=== PATIENT | female | born 1935 | race Caucasian/White ===

== ENCOUNTER 2017-08-09 16:13 | Emergency (ER) | payer MEDICARE ==
[2017-08-09] MEDS ORDERED: Sucralfate TAB* 1 GM PO ONE (17:59)
[2017-08-09] MEDS ORDERED: Al Hydrox/Mg Hydrox/Simet LIQ* 30 ML UDC PO ONE (17:59)
[2017-08-09] MEDS ORDERED: Pantoprazole IV* 40 MG IV ONE (17:59)
[2017-08-09 18:38] LABS: ABS Basophils 0 10^3/ul (0-0.2); ABS Eosinophils 0.1 10^3/ul (0-0.6); ABS Lymphocytes 1.3 10^3/ul (1.0-4.8); ABS Monocytes 0.7 10^3/ul (0-0.8); ABS Neutrophils 6.5 10^3/ul (1.5-7.7); ABS Nucleated RBC 0 10^3/ul; Eosinophil % 0.7 % (0-6); Hematocrit 36 % (35-47); Lymphocyte % 15.6 % (25-47); Mean Corpuscular HGB Conc 33 g/dl (31-36); Mean Corpuscular Hemoglobin 29 pg (27-31); Mean Corpuscular Volume 87 fL (80-97); Mean Platelet Volume 8 um3 (7.4-10.4); Nucleated Red Blood Cells % 0.1; Platelet Count 276 10^3/ul (150-450); Red Cell Distribution Width 14 % (10.5-15); White Blood Count 8.6 10^3/ul (3.5-10.8)
[2017-08-09 18:54] LABS: INR 1.06 (0.77-1.02)
[2017-08-09 18:55] LABS: EGFR Non-African American 77.5 (>60)
--- NOTE | 2017-08-09 19:06 | RAD ---
HISTORY: Chest pain COMPARISONS: June 14, 2017 VIEWS: 1: frontal portable view of the chest at 6:50 PM FINDINGS: LINES AND TUBES: None. CARDIOMEDIASTINAL SILHOUETTE: The cardiomediastinal silhouette is normal for portable technique. PLEURA: The costophrenic angles are sharp. No pleural abnormalities are noted. LUNG PARENCHYMA: The lungs are clear. ABDOMEN: The upper abdomen is clear. There is no subphrenic gas. BONES AND SOFT TISSUES: No bone or soft tissue abnormalities are noted. IMPRESSION: NO ACTIVE CARDIOPULMONARY DISEASE.
--- NOTE | 2017-08-09 19:07 | RAD ---
HISTORY: Abdominal pain COMPARISONS: CT dated April 19, 2017 VIEWS: Frontal views of the abdomen. FINDINGS: BOWEL: There is a nonspecific bowel gas pattern, with nondilated small bowel gas noted. There is a large amount of stool within the colon. CALCULI: There are no abnormal calculi. BONES AND SOFT TISSUES: Degenerative changes are noted OTHER FINDINGS: The lung bases are clear. There is no subphrenic gas. IMPRESSION: NONSPECIFIC BOWEL GAS PATTERN. LARGE AMOUNT OF STOOL WITHIN THE COLON.
[2017-08-09] MEDS ORDERED: Potassium Chlor TAB* 20 MEQ TAB.ER PO ONE (19:21)
--- NOTE | 2017-08-09 19:52 | ED ---
Chas Moreau Gabriel, scribed for Srinivasan Bonner MD on 08/09/17 at 1748 . Abdominal Pain/Female - HPI Summary HPI Summary: This patient is a 81 year old F presenting to [facility] accompanied by her daughter with a chief complaint of ABD pain that began 2 weeks ago. The patient rates the pain 4/10 in severity. Patient reports general malaise and MARIN. Patient is on 4L NC O2 at home. She was seen at Dr. Montoya office and they sent her to the ED because the EKG done there was different from prior ones. - History of Current Complaint Chief Complaint: EDChestPainROMI Stated Complaint: SENT BY FAMILY MEDICINE Hx Obtained From: Patient, Family/[employer] Manager Onset/Duration: Lasting Weeks - 2, Still Present Timing: Constant Severity Initially: Mild Severity Currently: Mild Pain Intensity: 4 Pain Scale Used: 0-10 Numeric Location: Diffuse Radiates: No Associated Signs and Symptoms: Positive: Other: - MARIN and general malaise Allergies/Adverse Reactions: Allergies Allergy/AdvReac Type Severity Reaction Status Date / Time Sulfa Antibiotics Allergy Unknown Verified 07/08/15 14:57 Reaction Details Home Medications: Home Medications Diltiazem CD CAP* [Cardizem CD CAP*] 120 mg PO DAILY 08/09/17 [History Confirmed 08/09/17] Fluticasone-Salmeterol 250-50* [Advair Diskus 250-50*] 1 puff INH BID 08/09/17 [ History Confirmed 08/09/17] Metolazone TAB* [Zaroxolyn TAB*] 2.5 mg PO DAILY 08/09/17 [History Confirmed 03/19] Montelukast Sodium TAB* [Singulair TAB*] 10 mg PO DAILY 08/09/17 [History Confirmed 08/09/17] Sertraline* [Zoloft*] 100 mg PO DAILY 08/09/17 [History Confirmed 08/09/17] Sucralfate TAB* [Carafate*] 1 gm PO BID 08/09/17 [History Confirmed 08/09/17] Tiotropium CAP.INH* [Spiriva CAP.INH*] 1 cap.inh INH DAILY 08/09/17 [History Confirmed 08/09/17] predniSONE TAB* [Deltasone TAB*] 40 mg PO DAILY 08/09/17 [History Confirmed 03/19] PMH/Surg Hx/FS Hx/Imm Hx Endocrine/Hematology History: Denies: Hx Diabetes Cardiovascular History: Reports: Hx Angina, Hx Hypercholesterolemia, Hx Hypertension Denies: Hx Congestive Heart Failure Respiratory History: Reports: Hx Chronic Obstructive Pulmonary Disease (COPD) History: Denies: Hx Renal Disease Sensory History: Reports: Hx Contacts or Glasses, Hx Hearing Aid Opthamlomology History: Reports: Hx Contacts or Glasses - Cancer History Hx Chemotherapy: No Hx Radiation Therapy: No - Surgical History Surgery Procedure, Year, and Place: TUBAL LIGATION, APPENDECTOMY Infectious Disease History: No Infectious Disease History: Reports: Hx Shingles Denies: History Other Infectious Disease, Traveled Outside the [place] in Last 30 Days - Family History Known Family History: Positive: Hypertension - Social History Alcohol Use: Daily Substance Use Type: Reports: None Hx Tobacco Use: No Smoking Status (MU): Former Smoker Type: Cigarettes Review of Systems Positive: Other - general malaise Positive: Cough Positive: Abdominal Pain Positive: Headache All Other Systems Reviewed And Are Negative: Yes Physical Exam - Summary Physical Exam Summary: Appearance: Well-appearing, Well-nourished Skin: Warm, dry Eyes: Normal, EOMI, PERRL ENT: Mild flushing of the face Neck: Supple, nontender Respiratory: diminished breath sounds b/l Cardiovascular: normal s1s2 few ectopic beats, no murmurs appreciated Abdomen: Soft, nontender, no modesto or guarding Musculoskeletal: Normal, Strength/ROM Intact Neurological: Normal, A&Ox3, cranial nerves 2-12 intact Psychiatric: Normal Vital Signs On Initial Exam: Initial Vitals Temp Pulse Resp BP Pulse Ox 98.9 F 70 18 124/46 99 08/09/17 16:32 08/09/17 16:32 08/09/17 16:32 08/09/17 16:32 08/09/17 16:32 - Fadumo Coma Scale Coma Scale Total: 15 Diagnostics - Vital Signs Vital Signs Temp Pulse Resp BP Pulse Ox 08/09/17 17:24 28 128/60 08/09/17 16:32 98.9 F 70 18 124/46 99 - Laboratory Lab Results: Lab Results 08/09/17 08/09/17 08/09/17 Range/Units 18:25 18:25 18:25 WBC 8.6 (3.5-10.8) 10^3/ul RBC 4.10 (4.0-5.4) 10^6/ul Hgb 12.0 (12.0-16.0) g/dl Hct 36 (35-47) % MCV 87 (80-97) fL MCH 29 (27-31) pg MCHC 33 (31-36) g/dl RDW 14 (10.5-15) % Plt Count 276 (150-450) 10^3/ul MPV 8 (7.4-10.4) um3 Neut % (Auto) 75.1 (38-83) % Lymph % (Auto) 15.6 L (25-47) % Polk % (Auto) 8.2 (1-9) % Eos % (Auto) 0.7 (0-6) % Baso % (Auto) 0.4 (0-2) % Absolute Neuts (auto) 6.5 (1.5-7.7) 10^3/ul Absolute Lymphs (auto) 1.3 (1.0-4.8) 10^3/ul Absolute Monos (auto) 0.7 (0-0.8) 10^3/ul Absolute Eos (auto) 0.1 (0-0.6) 10^3/ul Absolute Basos (auto) 0 (0-0.2) 10^3/ul Absolute Nucleated RBC 0 10^3/ul Nucleated RBC % 0.1 INR (Anticoag Therapy) (0.77-1.02) APTT (26.0-36.3) seconds Sodium 138 (133-145) mmol/L Potassium 2.9 L (3.5-5.0) mmol/L Chloride 92 L (101-111) mmol/L Carbon Dioxide 41 H* (22-32) mmol/L Anion Gap 5 (2-11) mmol/L BUN 22 (6-24) mg/dL Creatinine 0.72 (0.51-0.95) mg/dL Est GFR ( Amer) 99.7 (>60) Est GFR (Non-Af Amer) 77.5 (>60) BUN/Creatinine Ratio 30.6 H (8-20) Glucose 104 H (70-100) mg/dL Lactic Acid (0.5-2.0) mmol/L Calcium 9.1 (8.6-10.3) mg/dL Magnesium 1.9 (1.9-2.7) mg/dL Total Bilirubin 0.40 (0.2-1.0) mg/dL AST 12 L (13-39) U/L ALT 12 (7-52) U/L Alkaline Phosphatase 40 (34-104) U/L Troponin I 0.02 (<0.04) ng/mL B-Natriuretic Peptide 68 ( - 100) pg/mL Total Protein 6.3 L (6.4-8.9) g/dL Albumin 3.7 (3.2-5.2) g/dL Globulin 2.6 (2-4) g/dL Albumin/Globulin Ratio 1.4 (1-3) Lipase 23 (11.0-82.0) U/L 08/09/17 08/09/17 Range/Units 18:25 18:25 WBC (3.5-10.8) 10^3/ul RBC (4.0-5.4) 10^6/ul Hgb (12.0-16.0) g/dl Hct (35-47) % MCV (80-97) fL MCH (27-31) pg MCHC (31-36) g/dl RDW (10.5-15) % Plt Count (150-450) 10^3/ul MPV (7.4-10.4) um3 Neut % (Auto) (38-83) % Lymph % (Auto) (25-47) % Polk % (Auto) (1-9) % Eos % (Auto) (0-6) % Baso % (Auto) (0-2) % Absolute Neuts (auto) (1.5-7.7) 10^3/ul Absolute Lymphs (auto) (1.0-4.8) 10^3/ul Absolute Monos (auto) (0-0.8) 10^3/ul Absolute Eos (auto) (0-0.6) 10^3/ul Absolute Basos (auto) (0-0.2) 10^3/ul Absolute Nucleated RBC 10^3/ul Nucleated RBC % INR (Anticoag Therapy) 1.06 H (0.77-1.02) APTT 33.5 (26.0-36.3) seconds Sodium (133-145) mmol/L Potassium (3.5-5.0) mmol/L Chloride (101-111) mmol/L Carbon Dioxide (22-32) mmol/L Anion Gap (2-11) mmol/L BUN (6-24) mg/dL Creatinine (0.51-0.95) mg/dL Est GFR ( Amer) (>60) Est GFR (Non-Af Amer) (>60) BUN/Creatinine Ratio (8-20) Glucose (70-100) mg/dL Lactic Acid 0.6 (0.5-2.0) mmol/L Calcium (8.6-10.3) mg/dL Magnesium (1.9-2.7) mg/dL Total Bilirubin (0.2-1.0) mg/dL AST (13-39) U/L ALT (7-52) U/L Alkaline Phosphatase (34-104) U/L Troponin I (<0.04) ng/mL B-Natriuretic Peptide ( - 100) pg/mL Total Protein (6.4-8.9) g/dL Albumin (3.2-5.2) g/dL Globulin (2-4) g/dL Albumin/Globulin Ratio (1-3) Lipase (11.0-82.0) U/L Result Diagrams: 08/09/17 18:25 08/09/17 18:25 Lab Statement: Any lab studies that have been ordered have been reviewed, and results considered in the medical decision making process. Abdominal Pain Fem Course/Dx - Course Course Of Treatment: pt denies any chest pain, shortness of breath at baseline and is on home O2, potassium repleted. Pt's abdominal pain improved after medications, EKG changes that were seen at Urgent Care clinic (T wave inversions in anterior precordial leads) reesolved on repeat EKG here. Pt continues to deny any chest pain, awaiting second troponin before likely discharge. - Diagnoses Provider Diagnoses: EKG abnormality, Abdominal pain Discharge - Discharge Plan Condition: Improved Disposition: OTHER Discharge Disposition Comment: pt care signed out to PM attending Dr. Michaud Patient Education Materials: Abdominal Pain (ED) Referrals: Mitch Arceo MD [Primary Care Provider] - Additional Instructions: PLEASE RETURN IMMEDIATELY TO THE ER IF YOU HAVE ANY WORSENING OR CONCERNING SYMPTOMS PLEASE MAKE AN APPOINTMENT TO BE SEEN BY YOUR PRIMARY CARE DOCTOR WITHIN 1 WEEK The documentation as recorded by the Chas matos Gabriel accurately reflects the service I personally performed and the decisions made by me, Srinivasan Bonner MD.
--- NOTE | 2017-08-09 22:06 | ED ---
Cyrus Moreau Natalie, scribed for Scar Michaud MD on 08/09/17 at 2206 . Progress - Results/Orders Results/Orders: Abdomen XR: Nonspecific bowel gas pattern. Large amount of stool within the colon. ED physician has reviewed this report. CXR: No active cardiopulmonary disease. ED physician has reviewed this report. Course/Dx - Course Course Of Treatment: second trop neg, pt wishes to go home - Diagnoses Provider Diagnoses: EKG abnormality, Abdominal pain The documentation as recorded by the Cyrus matos Natalie accurately reflects the service I personally performed and the decisions made by Jaswant freeman William, MD.
[2017-08-09 22:14] VITALS: BP 135/53
== END 2017-08-09 22:13 | disposition home or self-care (01) ==
LOC: ED 16:13
DX: R05 Cough (principal); R10.9 Unspecified abdominal pain; R51 Headache; Z87.891 Personal history of nicotine dependence
CPT/HCPCS: 36415; 71045; 74018; 80053; 83605; 83690; 83735; 83880; 84484; 85025; 85610; 85730; 93005; 99283; A9270-GY

== ENCOUNTER 2017-12-16 15:01 | Inpatient (IN) | payer MEDICARE ==
[2017-12-16] MEDS ORDERED: NS 0.9% 500 ML* 500 ML IV ONE (15:22)
--- OUTSIDE RECORDS SUMMARY | 2017-12-16 15:42 | XMS REPORT ---
:1935 External Reference #:[id number] Author Organization [facility] Address [address] [address] Phone [phone] Care Team Providers Name Role Phone Mitch Arceo MD Primary Care Physician Unavailable Payers Type Date Identification Numbers Payment Provider Subscriber Health Maintenance Policy Number: Medicare Blue Ppo Jenny Khan (O) [id number] Group Number: [id number] [address] [address] PayID: [id number] [place] [address] Commercial Expires: 08/01/2015 Policy Number: Amer Adarsh/Román Palumbodavid Scales Jacobsen [id number] Options PayID: [id number] [address] [address] Attn: [place] [address] Problems Date Description Provider Status Onset: 07/10/2011 Electrocardiogram abnormal Jaren Moya M.D. Onset: 07/10/2011 Benign essential hypertension Jaren Moya M.D. Onset: 07/10/2011 Mitral valve disorder Jaren Moya M.D. Onset: 07/10/2011 Aortic valve disorder Jaren Moya M.D. 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 Onset: 07/03/[address] [facility] J[facility] Mcpherson M.D. Family History Date Family Member(s) Problem(s) Comments : (age 63 Years) Father due to NV had first NV at age 55 : (age 69 Years) Mother due to NV history of CAD Social History Type Date Description Comments Marital Status Occupation Currently Working Occupation [employer] Part-time Cigarette Use Former Cigarette Smoker 1 pt smoked for 50 years-quit Pack Daily 10 years ago ETOH Use Consumes 1 glass of wine per none last 2 weeks day Smoking Patient is a former smoker Recreational Drug Use Denies Drug Use Daily Caffeine Consumes on average 2 cups of regular coffee per day Exercise Type/Frequency Does not exercise Limited by breathing difficulty. Some walking with work. Allergies, Adverse Reactions, Alerts Date Description Reaction Status Severity Comments 06/17/2007 Sulfa active Medications Medication Date Status Form Strength Qnty SIG Indications Ordering Provider Compression 11/19/ Active Misc 2units wear on R06.02 Wanda Chance Stockings 2018 both legs Foster, daily and N.P. remove at night Diltiazem CD 11/09/ Active Caps ER 300mg 30caps one po qd Qutaybeh 2018 24HR Chance Ayers M.D. Flutter 07/06/ Active Device 1units use as J44.9 Hailee 2017 instructed Lisy twice a day Oxygen 01/26/ Active 4 L NC at Qutaybeh 2013 all times Chance Ayers M.D. Vit C 09/04/ Active 500mg qd Qutaybeh 2009 Chance Ayers M.D. Vit. E 08/15/ Active 400U 1 PO qd Qutaybeh 2008 Chance Ayers M.D. Spiriva 06/17/ Active Capsules 18mcg 3Mon 1 Qutaybeh Handihaler 2007 Inhalation Chance Ayers M.D. Singulair 06/17/ Active Tablets 10mg 90tabs 1 PO qd Qutaybeh 2006 Chance Ayers M.D. Advair Diskus / Active Misc 250-50mcg/ 2units 1 puff po Unknown 0000 Dose bid Sertraline HCL / Active Tablets 100mg 30tabs 1 po qd Unknown 0000 Pantoprazole / Active Tablets DR 40mg 1 - 2 by Unknown Sodium 0000 mouth every day Metolazone / Active Tablets 2.5mg take 1 Unknown 0000 tablet by mouth once daily Sucralfate / Active Tablets 1gm 1 tabe by Unknown 0000 mouth two times a day befor meals Xarelto / Active Tablets 20mg 1 by mouth Unknown 0000 every day Simvastatin / Active Tablets 20mg 1 po qd Darlow, 0000 MD Vinayak Quarles / Active Tablets 20mg 1 po qd Unknown 0000 Omeprazole 01/26/ Hx Capsules 20mg 90caps 1 by mouth Jose Monge - every day S. 03/24/ Armen 2014 [facility] Symbicort 08/15/ Hx Aerosol 160-4.5 3units 2 puff bid Qutaybeh 2008 - S. 09/04/ Armen 2009 [facility] Zoloft 08/15/ Hx Tablets 100mg 1 PO qd Qutaybeh 2008 - [facility] T[facility] 08/[facility]/ Hx Chewtabs 500mg prn Qutaybeh 2008 - S. 07/02/ [facility] Oxygen 08/15/ Hx 2Liters/Mi Via Nasal Qutaybeh 2008 - n Canula At S. 01/25/ ALL Time Armen 2013 , Gage Omeprazole 06/17/ Hx Capsules 20mg 90caps one po bid Blessingybjefferson 2006 - S. 09/04/ Armen 2009 G[facility] Advair Diskus 06/17/ Hx Misc 250/50 1Mon 1 puff bid Qutaybeh 2006 - Rinse Mouth S. 08/15/ After Armen 2008 , [facility] Zocor 06/17/ Hx Tablets 20mg 90tabs One QHS Qutaybeh 2006 - S. 06/16/ [facility] Zoloft 06/17/ Hx Tablets 50mg 30tabs Then 1 PO Qutaybeh 2006 - qd S. 08/15/ Armen 2008 Gage Pantoprazole / Hx Tablets DR 40mg 90tabs 1 po qd Unknown Sodium 0000 - 06/26/ 2014 Diltiazem CD / Hx Caps ER 120mg 1 by mouth Unknown 0000 - 24HR twice daily 2017 Clotrimazole / Hx Wandy 10mg Suck And Unknown 0000 - Swallow 03/04/ Four Times 2016 A Day Citrucel / Hx Tablets 500mg 2 tabs Unknown 0000 - twice a day 10/19/ as needed 2018 Medications Administered in Office Medication Date Status Form Strength Qnty SIG Indications Ordering Provider Depomedrol Administered Injection [place] 80MG 012 LARRY Wiseman Vital Signs Date Vital Result Comment 11/19/2017 Height 63 inches 5'3" Weight 176.75 lb no shoes Heart Rate 80 /min BP Systolic Sitting 130 mmHg Rue reg cuff BP Diastolic Sitting 58 mmHg Rue reg cuff BP Systolic Standing 134 mmHg Rue reg cuff BP Diastolic Standing 66 mmHg Rue reg cuff Respiratory Rate 26 /min BMI (Body Mass Index) 31.3 kg/m2 Ejection Fraction greater t% echo 10/07/17 10/20/2017 Height 63 inches 5'3" Weight 180.75 lb Heart Rate 90 /min O2 % BldC Oximetry 99 % 4 L O2 NC BMI (Body Mass Index) 32.0 kg/m2 08/24/2017 Height 63 inches 5'3" Weight 176.75 lb with shoes Heart Rate 88 /min BP Systolic Sitting 128 mmHg LA, reg cuff BP Diastolic Sitting 58 mmHg LA, reg cuff O2 % BldC Oximetry 96 % on 4L BMI (Body Mass Index) 31.3 kg/m2 07/06/2017 Height 63 inches 5'3" Weight 175.00 lb per pt Heart Rate 86 /min reg BP Systolic Sitting 110 mmHg Lue, reg cuff BP Diastolic Sitting 60 mmHg Lue, reg cuff Respiratory Rate 16 /min O2 % BldC Oximetry 98 % on 4 lpm BMI (Body Mass Index) 31.0 kg/m2 Neck Circumference in inches 16.25 06/16/2017 Height 63 inches 5'3" Weight 175.00 lb with shoes Heart Rate 90 /min BP Systolic Sitting 136 mmHg Rue reg cuff BP Diastolic Sitting 72 mmHg Rue reg cuff Respiratory Rate 22 /min O2 % BldC Oximetry 98 % On 4L O2 BMI (Body Mass Index) 31.0 kg/m2 Neck Circumference in inches 18 11/24/2016 Height 63 inches 5'3" Weight 177.25 lb with shoes Heart Rate 88 /min BP Systolic Sitting 138 mmHg Ra reg cuff BP Diastolic Sitting 72 mmHg Ra reg cuff BMI (Body Mass Index) 31.4 kg/m2 Ejection Fraction 55% - 60% echo 06/12/15 03/05/2016 Height 63 inches 5'3" Weight 172.25 lb with shoes BP Systolic Sitting 160 mmHg LA reg cuff BP Diastolic Sitting 60 mmHg LA reg cuff BMI (Body Mass Index) 30.5 kg/m2 08/06/2015 Height 63 inches 5'3" Weight 167.50 lb w/o shoes Heart Rate 82 /min reg BP Systolic Sitting 126 mmHg Lue, reg cuff BP Diastolic Sitting 70 mmHg Lue, reg cuff BP Systolic Standing 126 mmHg Lue BP Diastolic Standing 74 mmHg Lue Respiratory Rate 18 /min BMI (Body Mass Index) 29.7 kg/m2 Ejection Fraction 55-60% as of 06/12/15 echo 07/03/2015 Height 63 inches 5'3" Weight 169.00 lb Heart Rate 86 /min BP Systolic Sitting 138 mmHg Ra, reg BP Diastolic Sitting 64 mmHg Ra, reg BMI (Body Mass Index) 29.9 kg/m2 Ejection Fraction 55%-60% 06/12/15 03/25/2015 Height 63 inches 5'3" Weight 171.00 lb Heart Rate 90 /min BP Systolic 148 mmHg LA reg BP Diastolic 60 mmHg LA reg BMI (Body Mass Index) 30.3 kg/m2 Ejection Fraction 55-60% 11/03/12 ECHO 01/26/2014 Height 63 inches 5'3" Weight 175.00 lb Heart Rate 80 /min BP Systolic Sitting 158 mmHg BP Diastolic Sitting 70 mmHg BMI (Body Mass Index) 31.0 kg/m2 01/13/2013 Height 63 inches 5'3" Weight 163.00 lb Heart Rate 78 /min BP Systolic 140 mmHg BP Diastolic 64 mmHg O2 % BldC Oximetry 98 % on 2.5 liters via NC BMI (Body Mass Index) 28.9 kg/m2 07/10/2011 Height 63 inches 5'3" Weight 171.00 lb Heart Rate 80 /min BP Systolic 130 mmHg BP Diastolic 66 mmHg O2 % BldC Oximetry 98 % on 2 liters via NC BMI (Body Mass Index) 30.3 kg/m2 07/21/2010 Height 63 inches 5'3" Weight 167.00 lb Heart Rate 72 /min BP Systolic Sitting 130 mmHg L BP Diastolic Sitting 70 mmHg L O2 % BldC Oximetry 97 % on 2 liters BMI (Body Mass Index) 29.6 kg/m2 09/04/2009 Weight 172.00 lb Heart Rate 78 /min BP Systolic Sitting 120 mmHg BP Diastolic Sitting 70 mmHg Respiratory Rate 18 /min O2 % BldC Oximetry 96 % On 2 /l o2 08/15/2008 Height 63 inches 5'3" Weight 171.00 lb Heart Rate 86 /min BP Systolic Sitting 120 mmHg BP Diastolic Sitting 70 mmHg Respiratory Rate 18 /min BMI (Body Mass Index) 30.3 kg/m2 07/20/2007 Height 63 inches 5'3" Weight 175.00 lb Heart Rate 80 /min BP Systolic Sitting 142 mmHg L 138/75 L home unit BP Diastolic Sitting 70 mmHg L 138/75 L home unit BMI (Body Mass Index) 31.0 kg/m2 06/17/2007 Height 63 inches 5'3" Weight 175.00 lb Heart Rate 87 /min BP Systolic Sitting 164 mmHg L BP Diastolic Sitting 80 mmHg L O2 % BldC Oximetry 95 % BMI (Body Mass Index) 31.0 kg/m2 Results Test Date Test Result H/L Range Note Basic Metabolic Panel 08/24/2017 Sodium 138 mmol/L 133-145 Potassium 4.4 mmol/L 3.5-5.0 Chloride 92 mmol/L Low 101-111 Co2 Carbon Dioxide 40 mmol/L High 22-32 Anion Gap 6 mmol/L 2-11 Glucose 137 mg/dL High 70-100 Blood Urea Nitrogen 29 mg/dL High 6-24 Creatinine 0.87 mg/dL 0.51-0.95 BUN/Creatinine Ratio 33.3 High 8-20 Calcium 9.1 mg/dL 8.6-10.3 Egfr Non- 62.3 >60 Egfr 80.2 >60 1 1 Because ethnic data is not always readily available, this report includes an eGFR for both -Americans and non- Americans. The National Kidney Disease Education Program (NKDEP) does not endorse the use of the MDRD equation for patients that are not between the ages of 18 and 70, are , have extremes of body size, muscle mass, or nutritional status, or are non- or non-. According to the National Kidney Foundation, irrespective of diagnosis, the stage of the disease is based on the level of kidney function: Stage Description GFR(mL/min/1.73 m(2)) 1 Kidney damage with normal or decreased GFR 90 2 Kidney damage with mild decrease in GFR 60-89 3 Moderate decrease in GFR 30-59 4 Severe decrease in GFR 15-29 5 Kidney failure <15 (or dialysis) Procedures Date CPT Code Description Status 11/19/2017 84336 EKG Tracing & Interpretation Completed 11/09/2017 61218 Holter Monitor Review (24 hr)dr esteban & sinan Completed only 11/08/2017 97817 ECG Monitor/Recording W/Visual Superimposition Scanning Completed 10/07/2017 76972 ECHO Transthoracic, Real-Time 2D With Doppler And Color Completed Flow 10/07/2017 38159 ECHO Transthoracic, Real-Time 2D With Doppler And Color Completed Flow 09/30/2017 73840 Holter Monitor Review (24 hr)dr esteban & sinan Completed only 09/28/2017 36106 ECG Monitor/Recording W/Visual Superimposition Scanning Completed 09/01/2017 03149 Treadmill Interp/Report Only Completed 09/01/2017 10944 Stress Test Supervsn W/Out I/R Completed 08/24/2017 80642 EKG Tracing & Interpretation Completed 06/23/2017 78715 Diffusing Capacity Completed 06/23/2017 11022 Plethysmography Determination Lung Volumes & Per Completed Airway Resist 06/23/2017 91557 Pulmonary Stress Test Simple Completed 06/23/2017 33006 Pulmonary Function><Bronchodil Completed 11/24/2016 87800 EKG Tracing & Interpretation Completed 03/05/2016 34652 EKG Tracing & Interpretation Completed 07/12/2015 97535 Holter Monitoring 24 HR New Completed 07/11/2015 17818 Holter Monitor Review (24 hr)dr esteban & sinan Completed only 07/11/2015 62810 ECG Monitor/Recording W/Visual Superimposition Scanning Completed 07/03/2015 02006 EKG Tracing & Interpretation Completed 06/12/2015 06384 ECHO Transthorasic Realtime 2D W Doppler & Color Completed Flow Hosp 06/12/2015 57500 Treadmill Interp/Report Only Completed 06/12/2015 99965 Stress Test Supervsn W/Out I/R Completed 06/12/2015 07556 EKG, Interpretation Only Completed 04/03/2015 80562 ECHO Transthoracic, Real-Time 2D With Doppler And Color Completed Flow 03/25/2015 06870 EKG Tracing & Interpretation Completed 01/26/2014 61271 EKG Tracing & Interpretation Completed 01/13/2013 08962 EKG Tracing & Interpretation Completed 11/03/2012 78114 ECHO Transthoracic, Real-Time 2D With Doppler And Color Completed Flow 09/02/2011 48429 Inject/Drain Joint/Bursa Major Completed 09/02/2011 85435 Rad Exam; Knee, Ap&L Completed 09/02/2011 32330 Xray Knee 3 Views Completed 07/10/2011 24853 EKG Tracing & Interpretation Completed 07/07/2011 36297 ECHO Transthoracic, Real-Time 2D With Doppler And Color Completed Flow 08/14/2010 33913 Treadmill Interp/Report Only Completed 08/14/2010 51662 Stress Test Supervsn W/Out I/R Completed 09/05/2009 85169 ECHO Transthoracic, Real-Time 2D With Doppler And Color Completed Flow 09/04/2009 35681 EKG Tracing & Interpretation Completed 08/15/2008 39449 EKG Tracing & Interpretation Completed 01/05/2008 85603 Color Doppler Completed 01/05/2008 06464 Pulse Doppler & Continuous Wave Completed 01/05/2008 99342 Pulse Doppler & Continuous Wave Completed 01/05/2008 07465 Echocardiogram Completed 06/30/2007 31582 Stress Test Completed 06/30/2007 07632 Stress Test Completed 06/30/2007 62828 Stress Test Completed 06/30/2007 12386 ECHO/Stress Completed 06/30/2007 11840 ECHO/Stress Completed 06/30/2007 54872 ECHO/Stress Completed 06/22/2007 98687 Color Doppler Completed 06/22/2007 70377 Color Doppler Completed 06/22/2007 85532 Pulse Doppler & Continuous Wave Completed 06/22/2007 42941 Pulse Doppler & Continuous Wave Completed 06/22/2007 69281 Pulse Doppler & Continuous Wave Completed 06/22/2007 68071 Echocardiogram Completed 06/22/2007 68826 Echocardiogram Completed 06/17/2007 74938 EKG Tracing & Interpretation Completed 06/17/2007 45570 EKG Tracing & Interpretation Completed Encounters Type Date Location Provider CPT E/M Dx Office Visit 11/19/2017 [facility] Wanda Shell, 74635 I48.91 10:30a [facility] N.[facility] I49.3 R06.02 I48.0 I10 I34.0 Office Visit 10/20/2017 10:30a [facility] Wanda Shell, N.P. 25669 I48.91 I49.3 R06.02 I48.0 Office Visit 08/24/2017 3:00p [facility] Jose Ayers, 55471 I48.91 M.D. R06.02 I48.0 I10 I34.0 R94.31 R10.13 Office Visit 07/06/2017 3:00p [facility] [place] [address] J44.9 [facility] I27.20 R09.02 Z99.81 Z87.891 Office Visit 11/24/2016 2:00p [facility] Jose Ayers, 20979 J44.9 M.D. I48.0 I10 R06.02 I34.0 Z99.81 R94.31 I49.8 Office Visit 03/05/2016 2:20p [facility] Jose Ayers, 41007 J44.9 M.D. I48.0 I10 R06.02 I34.0 Office Visit 08/06/2015 9:30a [facility] CARMEN Connor 59302LFR J44.9 I48.0 I10 R06.02 I34.0 Office Visit 07/03/2015 9:00a [facility] Jose Ayers, 50853 I48.91 M.D. J44.9 R06.02 I10 I34.0 Office Visit 06/12/2015 1:05p [facility], Preeti Scott, 37309 I48.91 Hospitalists M.D. J44.9 M79.603 K21.9 Office Visit 06/11/2015 1:04p [facility], Wanda Shell, 10740 I48.91 Hospitalists N.P. J44.9 M79.603 K21.9 Office Visit 03/25/2015 1:40p [facility] Qutaybeh S. Maghaydah, 33567 401.1 M.D. 786.05 424.0 397.0 Office Visit 01/26/2014 3:40p [facility] Qutaybeh S. Maghaydah, 29999 401.1 M.D. 786.05 424.0 397.0 Office Visit 01/13/2013 10:00a [facility] Qutaybeh S. Maghaydah, 96751 794.31 M.D. 401.1 424.0 786.05 397.0 272.4 Office Visit 09/02/2011 9:00a [facility] Charlotte Wiseman, [facility] 76105 719.06 C.M.ADariusz 715.96 716.96 Office Visit 07/10/2011 11:00a [facility] Qutaybeh S. Maghaydah, 35624 794.31 M.D. 401.1 424.0 424.1 Office Visit 08/14/2010 11:30a [facility] Qutaybeh S. Maghaydah, 42503 786.50 M.D. 424.1 424.0 401.1 272.4 Office Visit 07/21/2010 1:05p [facility] Qutaybeh S. Maghaydah, 28564 786.50 M.D. 401.1 272.4 496 Office Visit 09/04/2009 11:40a [facility] Qutaybeh S. Maghaydah, 66014 786.05 M.D. 496 272.4 424.1 Office Visit 08/15/2008 9:00a [facility] Qutaybeh S. Maghaydah, 44391 786.05 M.D. 496 272.4 794.31 Office Visit 07/20/2007 9:20a [facility] Qutaybeh S. Maghaydah, 76816 786.05 M.D. 496 401.1 272.4 Office Visit 06/17/2007 1:40p [facility] Jose Ayers, 69331 401.0 M.D. 272.4 496 786.50 786.05 Plan of Care Future Appointment(s):12/09/2017 8:30 am - Nurse Visit cc at [facility]12/08/2017 10:00 am - Nurse Visit cc at [facility]01/04/2018 1 :30 pm - Hailee Wasserman MD at [facility]11/19/2017 - Wanda Shell, N.P.I48.91 Unspecified atrial ycqnvpxhimghD75.3 Ventricular premature qgiuxbxnnzgxbtD43.02 Shortness of breathNew Medication:Compression XrpuqzlsdA74.0 Paroxysmal atrial fibrillationNew Orders:Holter MonitorComments: HR controlled 92Follow up:f/u OV QSM 1-2 months.Recommendations:Continue Diltiazem 300mg [id number] Essential (primary) dgnblgsxsyzyJ91.0 Nonrheumatic mitral (valve) insufficiency
[2017-12-16 15:48] LABS: ABS Basophils 0.1 10^3/ul (0-0.2); ABS Eosinophils 0.1 10^3/ul (0-0.6); ABS Lymphocytes 1.1 10^3/ul (1.0-4.8); ABS Monocytes 0.9 10^3/ul (0-0.8); ABS Nucleated RBC 0 10^3/ul; Eosinophil % 0.7 % (0-6); Hematocrit 34 % (35-47); Hemoglobin 10.9 g/dl (12.0-16.0); Lymphocyte % 9.7 % (25-47); Mean Corpuscular HGB Conc 32 g/dl (31-36); Mean Corpuscular Hemoglobin 28 pg (27-31); Mean Corpuscular Volume 88 fL (80-97); Mean Platelet Volume 7.8 um3 (7.4-10.4); Nucleated Red Blood Cells % 0; Platelet Count 275 10^3/ul (150-450); Red Blood Count 3.82 10^6/ul (4.0-5.4); Red Cell Distribution Width 15 % (10.5-15); White Blood Count 11.1 10^3/ul (3.5-10.8)
--- NOTE | 2017-12-16 16:08 | RAD ---
INDICATION: Elevated heart rate. COMPARISON: Comparison is made with a prior chest x-ray study from August 09, 2017. TECHNIQUE: A portable view of the chest was obtained. FINDINGS: Cardiac and mediastinal contours appear to be within normal limits. The lungs are underinflated. There are small infiltrates at both lung bases. No pleural effusion is seen. IMPRESSION: LOW LUNG VOLUMES, SMALL BIBASILAR INFILTRATES.
[2017-12-16 16:19] LABS: EGFR Non-African American 78.6 (>60)
[2017-12-16] MEDS ORDERED: Diltiazem IV* 5 MG/ML 5 ML VIAL (for loading dose/IV Push) (25 MG) IV SLOW PU ONE ×2 (16:42→18:43)
[2017-12-16] MEDS ORDERED: Diltiazem TAB* 30 MG PO ONE (16:42)
[2017-12-16] MEDS ORDERED: Potassium Chlor TAB* 20 MEQ TAB.ER PO ONE (19:18)
[2017-12-16] MEDS ORDERED: KCL 10 MEQ/50 ML IVPREMIX* 10 MEQ/50 ML BAG IV ONE (19:18)
--- NOTE | 2017-12-16 20:18 | ED ---
Clemente Moreau Jennifer, scribed for Srinivasan Bonner MD on 12/16/17 at 1524 . Palpitations / Dysrhythmia - HPI Summary HPI Summary: The patient is an 82 year old female who was sent to the ED from cardiology for rapid afib today. The patient was diagnosed with afib six weeks ago. She states that she is always short of breath and coughing. She denies pain. The patient states that she uses 4L of oxygen all the time so is. - History of Current Complaint Chief Complaint: EDDysrhythmPalp Hx Obtained From: Patient Onset/Duration: Sudden Onset, Lasting Hours, Still Present, Other - Dx afib 6 weeks ago Timing: Constant Severity Initially: Mild Severity Currently: Mild Character: Fast, Irregular Aggravating: Nothing Alleviating: Nothing Associated Signs & Symptoms: Shortness of Breath - Allergy/Home Medications Allergies/Adverse Reactions: Allergies Allergy/AdvReac Type Severity Reaction Status Date / Time Sulfa (Sulfonamide Allergy Unknown Verified 12/16/17 16:12 Antibiotics) Reaction Details Home Medications: Home Medications Calcium Citrate TAB* [Citracal TAB*] 1,000 mg PO BID 12/16/17 [History Confirmed 12/16/17] dilTIAZem HCl [Diltiazem 24Hr ER] 360 mg PO DAILY 12/16/17 [History Confirmed ] PMH/Surg Hx/FS Hx/Imm Hx Endocrine/Hematology History: Denies: Hx Diabetes Cardiovascular History: Reports: Hx Angina, Hx Atrial Fibrillation, Hx Hypercholesterolemia, Hx Hypertension Denies: Hx Congestive Heart Failure Respiratory History: Reports: Hx Chronic Obstructive Pulmonary Disease (COPD) History: Denies: Hx Renal Disease Sensory History: Reports: Hx Contacts or Glasses, Hx Hearing Aid Opthamlomology History: Reports: Hx Contacts or Glasses - Cancer History Hx Chemotherapy: No Hx Radiation Therapy: No - Surgical History Surgery Procedure, Year, and Place: TUBAL LIGATION, APPENDECTOMY Infectious Disease History: No Infectious Disease History: Reports: Hx Shingles Denies: History Other Infectious Disease, Traveled Outside the [place] in Last 30 Days - Family History Known Family History: Positive: Hypertension - Social History Alcohol Use: Daily Substance Use Type: Reports: None Hx Tobacco Use: No Smoking Status (MU): Former Smoker Type: Cigarettes Review of Systems Positive: Palpitations Positive: Shortness Of Breath All Other Systems Reviewed And Are Negative: Yes Physical Exam - Summary Physical Exam Summary: Appearance: Well-appearing, Well-nourished Skin: Warm Eyes: Normal ENT: Normal Neck: Supple, nontender Respiratory: Diminished breath sounds bilaterally,. Cardiovascular: Normal S1, S2. No murmurs. Normal distal pulses in tibial and radial bilaterally, equal bilaterally in the upper and lower extremities. Negative Luz Elena's sign. Abdomen: Soft, nontender Musculoskeletal: Normal, Strength/ROM Intact, No lower extermity tenderness or swelling. Neurological: Normal, A&Ox3 Psychiatric: Normal General: No acute distress Triage Information Reviewed: Yes Vital Signs On Initial Exam: Initial Vitals Temp Pulse Resp BP Pulse Ox 97.3 F 115 18 105/54 100 12/16/17 15:02 12/16/17 15:02 12/16/17 15:02 12/16/17 15:02 12/16/17 15:02 Vital Signs Reviewed: Yes Diagnostics - Vital Signs Vital Signs Temp Pulse Resp BP Pulse Ox 12/16/17 15:02 97.3 F 115 18 105/54 100 - Laboratory Lab Results: Lab Results 12/16/17 12/16/17 12/16/17 Range/Units 15:39 15:39 15:39 WBC 11.1 H (3.5-10.8) 10^3/ul RBC 3.82 L (4.0-5.4) 10^6/ul Hgb 10.9 L (12.0-16.0) g/dl Hct 34 L (35-47) % MCV 88 (80-97) fL MCH 28 (27-31) pg MCHC 32 (31-36) g/dl RDW 15 (10.5-15) % Plt Count 275 (150-450) 10^3/ul MPV 7.8 (7.4-10.4) um3 Neut % (Auto) 80.9 (38-83) % Lymph % (Auto) 9.7 L (25-47) % [place] % (Auto) 8.2 H (0-7) % Eos % (Auto) 0.7 (0-6) % Baso % (Auto) 0.5 (0-2) % Absolute Neuts (auto) 9.0 H (1.5-7.7) 10^3/ul Absolute Lymphs (auto) 1.1 (1.0-4.8) 10^3/ul Absolute Monos (auto) 0.9 H (0-0.8) 10^3/ul Absolute Eos (auto) 0.1 (0-0.6) 10^3/ul Absolute Basos (auto) 0.1 (0-0.2) 10^3/ul Absolute Nucleated RBC 0 10^3/ul Nucleated RBC % 0 Sodium 140 (139-145) mmol/L Potassium 3.1 L (3.5-5.0) mmol/L Chloride 92 L (101-111) mmol/L Carbon Dioxide 42 H* (22-32) mmol/L Anion Gap 6 (2-11) mmol/L BUN 17 (6-24) mg/dL Creatinine 0.71 (0.51-0.95) mg/dL Est GFR ( Amer) 101.1 (>60) Est GFR (Non-Af Amer) 78.6 (>60) BUN/Creatinine Ratio 23.9 H (8-20) Glucose 95 (70-100) mg/dL Lactic Acid 0.8 (0.5-2.0) mmol/L Calcium 8.3 L (8.6-10.3) mg/dL Magnesium 2.1 (1.9-2.7) mg/dL Total Bilirubin 0.30 (0.2-1.0) mg/dL AST 12 L (13-39) U/L ALT 11 (7-52) U/L Alkaline Phosphatase 37 (34-104) U/L Troponin I 0.01 (<0.04) ng/mL B-Natriuretic Peptide ( - 100) pg/mL Total Protein 5.7 L (6.4-8.9) g/dL Albumin 3.3 (3.2-5.2) g/dL Globulin 2.4 (2-4) g/dL Albumin/Globulin Ratio 1.4 (1-3) TSH 2.09 (0.34-5.60) mcIU/mL 12/16/17 12/16/17 Range/Units 15:39 18:12 WBC (3.5-10.8) 10^3/ul RBC (4.0-5.4) 10^6/ul Hgb (12.0-16.0) g/dl Hct (35-47) % MCV (80-97) fL MCH (27-31) pg MCHC (31-36) g/dl RDW (10.5-15) % Plt Count (150-450) 10^3/ul MPV (7.4-10.4) um3 Neut % (Auto) (38-83) % Lymph % (Auto) (25-47) % [place] % (Auto) (0-7) % Eos % (Auto) (0-6) % Baso % (Auto) (0-2) % Absolute Neuts (auto) (1.5-7.7) 10^3/ul Absolute Lymphs (auto) (1.0-4.8) 10^3/ul Absolute Monos (auto) (0-0.8) 10^3/ul Absolute Eos (auto) (0-0.6) 10^3/ul Absolute Basos (auto) (0-0.2) 10^3/ul Absolute Nucleated RBC 10^3/ul Nucleated RBC % Sodium (139-145) mmol/L Potassium (3.5-5.0) mmol/L Chloride (101-111) mmol/L Carbon Dioxide (22-32) mmol/L Anion Gap (2-11) mmol/L BUN (6-24) mg/dL Creatinine (0.51-0.95) mg/dL Est GFR ( Amer) (>60) Est GFR (Non-Af Amer) (>60) BUN/Creatinine Ratio (8-20) Glucose (70-100) mg/dL Lactic Acid (0.5-2.0) mmol/L Calcium (8.6-10.3) mg/dL Magnesium (1.9-2.7) mg/dL Total Bilirubin (0.2-1.0) mg/dL AST (13-39) U/L ALT (7-52) U/L Alkaline Phosphatase (34-104) U/L Troponin I 0.01 (<0.04) ng/mL B-Natriuretic Peptide 353 H ( - 100) pg/mL Total Protein (6.4-8.9) g/dL Albumin (3.2-5.2) g/dL Globulin (2-4) g/dL Albumin/Globulin Ratio (1-3) TSH (0.34-5.60) mcIU/mL Result Diagrams: 12/16/17 15:39 12/16/17 15:39 Lab Statement: Any lab studies that have been ordered have been reviewed, and results considered in the medical decision making process. - Radiology CXR Xray Interpretation: Positive (See Comments) - LOW LUNG VOLUMES, SMALL BIBASILAR INFILTRATES. Dr. Bonner has reviewed this report. Radiology Interpretation Completed By: Radiologist - EKG 1535 EKG Rhythm: Atrial Fibrillation - 120 BPM EKG Interpretation: No acute ischemic ST changes, minimally prolonged QT Course/Dx - Course Assessment/Plan: Patient given 2 doses of IV Cardizem bolus and oral Cardizem, transiently responsive 5 persistently tachycardic here in the emergency department, started on continuous Cardizem and admitted for further treatment - Diagnoses Provider Diagnoses: Rapid atrial fibrillation - Physician Notifications Discussed Care Of Patient With: Prosper Matthew Discharge - Sign-Out/Discharge Documenting (check all that apply): Discharge/Admit/Transfer - Discharge Plan Condition: Stable Disposition: ADMITTED TO [facility] Referrals: Mitch Arceo MD [Primary Care Provider] - - Billing Disposition and Condition Condition: STABLE [place] [place] The documentation as recorded by the Clemente matos Jennifer accurately reflects the service I personally performed and the decisions made by , Srinivasan Bonner MD.
[2017-12-16] MEDS: Diltiazem DRIP* 100 MG/100 ML ADDV.BAG IVPB ONE ×2 (21:10→23:05)
--- NOTE | 2017-12-16 21:27 | HP ---
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 She denies symptoms, specifically chest pain/discomfort, worsening SOB, worsening cough/congestion, palpitations, N/V, sweats, F/C, fatigue, or other issues. 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 HTN GERD anxiety depression Ambulatory Orders Pantoprazole TAB (NF) [Protonix TAB (NF)] 40 - 80 mg PO DAILY 06/11/15 Simvastatin TAB(NF) [Zocor 20 MG (NF)] 20 mg PO DAILY 06/11/15 Rivaroxaban TAB(*) [Xarelto 20 mg] 20 mg PO DAILY 07/08/15 Fluticasone-Salmeterol 250-50* [Advair Diskus 250-50*] 1 puff INH BID 08/09/17 Metolazone TAB* [Zaroxolyn TAB*] 2.5 mg PO DAILY 08/09/17 Montelukast Sodium TAB* [Singulair 10 MG TAB*] 10 mg PO DAILY 08/09/17 Sertraline* [Zoloft*] 100 mg PO DAILY 08/09/17 Sucralfate TAB* [Carafate*] 1 gm PO BID AC 08/09/17 Tiotropium CAP.INH* [Spiriva CAP.INH*] 1 cap.inh INH DAILY 08/09/17 predniSONE TAB* [Deltasone TAB*] 40 mg PO DAILY 08/09/17 Ascorbic Acid TAB* [Vitamin C TAB*] 500 mg PO DAILY 09/01/17 Vitamin E Mixed [Vitamin E] 400 unit PO DAILY 09/01/17 Calcium Citrate TAB* [Citracal TAB*] 1,000 mg PO BID 12/16/17 dilTIAZem HCl [Diltiazem 24Hr ER] 360 mg PO DAILY 12/16/17 Allergies Sulfa (Sulfonamide Antibiotics) Allergy (Verified 12/16/17 16:12) Unknown Reaction Details PSurgHx appendectomy tonsillectomy hysterectomy OU cataract extractions SocHx: former smoker w/ ~50PYHX, 1 alcoholic drink daily, no recreational drugs ; ; full code status FamHx: positive for CAD, DM, & HTN ROS: as above, otherwise reviewed and all were negative vitals: Vital Signs Temp 36.8 C 12/17/17 03:24 Pulse 127 12/16/17 23:44 Resp 20 12/17/17 03:24 BP 117/97 12/16/17 23:44 Pulse Ox 100 12/17/17 03:24 Intake & Output 12/16/17 12/16/17 12/17/17 11:59 23:59 11:59 Intake Total 18.7 Balance 18.7 Weight 81.193 kg 82.781 kg Intake: IV Fluids 18.7 Constitutional: NAD, normally developed, obese elderly white female HEENM: atraumatic; sclera/conjunctiva: anicteric/clear; hearing: markedly hard of hearing; oropharynx: clear, mucosa moist Neck: soft tissue: non-tender; thyroid: normal Pulmonary: clear to auscultation bilaterally, good aeration, no accessory muscle use CV: TIR/IR, normal S1S2, no carotid bruit, no jugular venous distention, 2+ B DP /PT, trace BLE edema Abdominal: soft, non-distended, non-tender, no rebound/guarding/rigidity, normoactive bowel sounds, no hepatosplenomegaly or masses, no costovertebral angle tenderness Musculoskeletal: general: grossly intact, non-tender Integumental: normal appearance and texture of exposed skin Psychiatric orientation: AA&O to PPS affect: calm mood: pleasant eye contact: good content: reliable responses: timely insight: good Testing: Lab Results 12/16/17 12/16/17 12/16/17 Range/Units 15:39 15:39 15:39 WBC 11.1 H (3.5-10.8) 10^3/ul RBC 3.82 L (4.0-5.4) 10^6/ul Hgb 10.9 L (12.0-16.0) g/dl Hct 34 L (35-47) % MCV 88 (80-97) fL MCH 28 (27-31) pg MCHC 32 (31-36) g/dl RDW 15 (10.5-15) % Plt Count 275 (150-450) 10^3/ul MPV 7.8 (7.4-10.4) um3 Neut % (Auto) 80.9 (38-83) % Lymph % (Auto) 9.7 L (25-47) % [place] % (Auto) 8.2 H (0-7) % Eos % (Auto) 0.7 (0-6) % Baso % (Auto) 0.5 (0-2) % Absolute Neuts (auto) 9.0 H (1.5-7.7) 10^3/ul Absolute Lymphs (auto) 1.1 (1.0-4.8) 10^3/ul Absolute Monos (auto) 0.9 H (0-0.8) 10^3/ul Absolute Eos (auto) 0.1 (0-0.6) 10^3/ul Absolute Basos (auto) 0.1 (0-0.2) 10^3/ul Absolute Nucleated RBC 0 10^3/ul Nucleated RBC % 0 Sodium 140 (139-145) mmol/L Potassium 3.1 L (3.5-5.0) mmol/L Chloride 92 L (101-111) mmol/L Carbon Dioxide 42 H* (22-32) mmol/L Anion Gap 6 (2-11) mmol/L BUN 17 (6-24) mg/dL Creatinine 0.71 (0.51-0.95) mg/dL Est GFR ( Amer) 101.1 (>60) Est GFR (Non-Af Amer) 78.6 (>60) BUN/Creatinine Ratio 23.9 H (8-20) Glucose 95 (70-100) mg/dL Lactic Acid 0.8 (0.5-2.0) mmol/L Calcium 8.3 L (8.6-10.3) mg/dL Magnesium 2.1 (1.9-2.7) mg/dL Total Bilirubin 0.30 (0.2-1.0) mg/dL AST 12 L (13-39) U/L ALT 11 (7-52) U/L Alkaline Phosphatase 37 (34-104) U/L Troponin I 0.01 (<0.04) ng/mL B-Natriuretic Peptide ( - 100) pg/mL Total Protein 5.7 L (6.4-8.9) g/dL Albumin 3.3 (3.2-5.2) g/dL Globulin 2.4 (2-4) g/dL Albumin/Globulin Ratio 1.4 (1-3) TSH 2.09 (0.34-5.60) mcIU/mL 12/16/17 12/16/17 12/16/17 Range/Units 15:39 18:12 21:12 WBC (3.5-10.8) 10^3/ul RBC (4.0-5.4) 10^6/ul Hgb (12.0-16.0) g/dl Hct (35-47) % MCV (80-97) fL MCH (27-31) pg MCHC (31-36) g/dl RDW (10.5-15) % Plt Count (150-450) 10^3/ul MPV (7.4-10.4) um3 Neut % (Auto) (38-83) % Lymph % (Auto) (25-47) % [place] % (Auto) (0-7) % Eos % (Auto) (0-6) % Baso % (Auto) (0-2) % Absolute Neuts (auto) (1.5-7.7) 10^3/ul Absolute Lymphs (auto) (1.0-4.8) 10^3/ul Absolute Monos (auto) (0-0.8) 10^3/ul Absolute Eos (auto) (0-0.6) 10^3/ul Absolute Basos (auto) (0-0.2) 10^3/ul Absolute Nucleated RBC 10^3/ul Nucleated RBC % Sodium (139-145) mmol/L Potassium (3.5-5.0) mmol/L Chloride (101-111) mmol/L Carbon Dioxide (22-32) mmol/L Anion Gap (2-11) mmol/L BUN (6-24) mg/dL Creatinine (0.51-0.95) mg/dL Est GFR ( Amer) (>60) Est GFR (Non-Af Amer) (>60) BUN/Creatinine Ratio (8-20) Glucose (70-100) mg/dL Lactic Acid (0.5-2.0) mmol/L Calcium (8.6-10.3) mg/dL Magnesium (1.9-2.7) mg/dL Total Bilirubin (0.2-1.0) mg/dL AST (13-39) U/L ALT (7-52) U/L Alkaline Phosphatase (34-104) U/L Troponin I 0.01 0.01 (<0.04) ng/mL B-Natriuretic Peptide 353 H ( - 100) pg/mL Total Protein (6.4-8.9) g/dL Albumin (3.2-5.2) g/dL Globulin (2-4) g/dL Albumin/Globulin Ratio (1-3) TSH (0.34-5.60) mcIU/mL ECG, personally reviewed: AFIB rate 120, no ischemia CXR, personally reviewed: IMPRESSION: LOW LUNG VOLUMES, SMALL BIBASILAR INFILTRATES. Impression: 82F HX 4L oxygen dependant COPD, AFIB, chronic hypox/hypercap respiratory failure, rheumatic tricuspid disease, HTN presents with asymptomatic AFIB/RVR DIAGNOSIS & PLAN Primary AFIB/RVR : rate control : continue rivaroxaban : supplemental oxygen : telemetry : supportive care Secondary 4L oxygen dependant COPD chronic hypox/hypercap respiratory failure : supplemental oxygen : albuterol, mometasone/formoterol/tiotropium/prednisone rheumatic tricuspid disease : no acute issues HTN : continue diltiazem via GTT : monitor HLD : continue simvastatin GERD : omeprazole anxiety/depression : continue sertraline Admission Rational: observation for AFIB/RVR DVTp: continue rivaroxaban Code Status: full HCP: daughter, Rebekah Garay
[2017-12-16] MEDS ORDERED: CMCS: Melatonin (NF) 3 MG TAB PO PRN (21:44)
[2017-12-16] MEDS ORDERED: Albuterol 2.5 MG/3 ML NEB.SOL* (0.083%) INH PRN (21:44)
[2017-12-16] MEDS ORDERED: Morphine VIAL* 4 MG/ML VIAL (1 ml vial) IV PRN (21:44)
[2017-12-16] MEDS ORDERED: Acetaminophen TAB* 325 MG PO PRN (21:44)
[2017-12-16] MEDS ORDERED: Ondansetron ODT TAB* 4 MG PO PRN (21:44)
[2017-12-17] MEDS: Diltiazem DRIP* 100 MG/100 ML ADDV.BAG IVPB ONE ×2 (00:05→13:17)
[2017-12-17] MEDS: Albuterol 2.5 MG/3 ML NEB.SOL* (0.083%) INH SCH ×2 (02:58→07:38)
[2017-12-17 05:15] LABS: ABS Basophils 0 10^3/ul (0-0.2); ABS Eosinophils 0.1 10^3/ul (0-0.6); ABS Lymphocytes 1.2 10^3/ul (1.0-4.8); ABS Monocytes 0.7 10^3/ul (0-0.8); ABS Neutrophils 6.7 10^3/ul (1.5-7.7); ABS Nucleated RBC 0 10^3/ul; Hematocrit 32 % (35-47); Hemoglobin 10.6 g/dl (12.0-16.0); Lymphocyte % 13.5 % (25-47); Mean Corpuscular HGB Conc 33 g/dl (31-36); Mean Corpuscular Hemoglobin 29 pg (27-31); Mean Corpuscular Volume 87 fL (80-97); Mean Platelet Volume 8.1 um3 (7.4-10.4); Nucleated Red Blood Cells % 0; Platelet Count 251 10^3/ul (150-450); Red Blood Count 3.66 10^6/ul (4.0-5.4); Red Cell Distribution Width 14 % (10.5-15); White Blood Count 8.8 10^3/ul (3.5-10.8)
[2017-12-17 05:31] LABS: EGFR Non-African American 88.6 (>60)
[2017-12-17] MEDS: Omeprazole CAP* 20 MG PO SCH (05:50)
[2017-12-17] MEDS: Atorvastatin* 10 MG TAB PO SCH (08:51)
[2017-12-17] MEDS: Docusate CAP* 100 MG PO SCH ×2 (08:51→20:24)
[2017-12-17] MEDS: Metolazone TAB* 5 MG PO SCH (08:51)
[2017-12-17] MEDS: Tiotropium CAP.INH* CAP.INH/18 MCG (USE ORDER SET !) INH SCH (08:51)
[2017-12-17] MEDS: Sucralfate TAB* 1 GM PO SCH ×2 (08:52→16:40)
[2017-12-17] MEDS: Montelukast Sodium TAB* 10 MG PO SCH (08:52)
[2017-12-17] MEDS: Sertraline* 100 MG TAB PO SCH (08:52)
[2017-12-17] MEDS: Rivaroxaban TAB(*) 20 MG TAB PO SCH (08:52)
[2017-12-17] MEDS: Mometasone/Formoter 200/5 MDI INH SCH ×2 (08:52→20:41)
[2017-12-17] MEDS ORDERED: Spiriva Inhaler DEVICE* 1 EACH DEVICE INH ONE (09:00)
[2017-12-17] MEDS ORDERED: predniSONE TAB* 20 MG PO SCH (09:00)
[2017-12-17] MEDS ORDERED: Tiotropium CAP.INH* CAP.INH/18 MCG (USE ORDER SET !) INH SCH (09:00)
[2017-12-17] MEDS ORDERED: Digoxin IV* 0.5 MG/2 ML AMP (0.25 MG/ML) IV SLOW PU ONE (09:03)
[2017-12-17] MEDS ORDERED: Levalbuterol 1.25MG/0.5ML NEB INH SCH (12:00)
--- NOTE | 2017-12-17 12:02 | PN ---
Subjective Date of Service: 12/17/17 Interval History: Pt feels "fine". Went to see for a routine f/u of her uncontrolled A. fib wit no new complaints. Was noted to be in rapid A. fib and sent to [facility] [place]. Objective Active Medications: Acetaminophen (Tylenol Tab*) 650 mg PO Q6H PRN PRN Reason: FEVER/PAIN Atorvastatin Calcium (Lipitor*) 10 mg PO DAILY [facility] Last Admin: 12/17/17 08:51 Dose: 10 mg Digoxin (Lanoxin Tab*) 0.25 mg PO 1700 [facility] Diltiazem HCl (Cardizem Tab*) 90 mg PO Q6HR [facility] Docusate Sodium (Colace Cap*) 200 mg PO BID [facility] Last Admin: 12/17/17 08:51 Dose: 200 mg Levalbuterol HCl (Xopenex 1.25 Mg/0.5 Ml Neb.Rosalba*) 1.25 mg INH Q6H [facility] Melatonin (Melatonin (Nf)) 3 mg PO BEDTIME PRN; Protocol PRN Reason: Sleep Methylprednisolone Sodium Succinate (Solu-Medrol 40 Mg) 40 mg IV Q8H [facility] Metolazone (Zaroxolyn Tab*) 2.5 mg PO DAILY [facility] Last Admin: 12/17/17 08:51 Dose: 2.5 mg Mometasone Furoate/Formoterol Fumar (Dulera 200/5 Mdi*) 2 puff INH BID [facility] Last Admin: 12/17/17 08:52 Dose: 2 puff Montelukast Sodium (Singulair Tab*) 10 mg PO DAILY [facility] Last Admin: 12/17/17 08:52 Dose: 10 mg Morphine Sulfate (Morphine Vial*) 1 mg IV Q2H PRN PRN Reason: PAIN Omeprazole (Prilosec Cap*) 20 mg PO DAILY@0600 [facility] Last Admin: 12/17/17 05:50 Dose: 20 mg Ondansetron HCl (Zofran Odt Tab*) 4 mg PO Q6H PRN PRN Reason: n/v Rivaroxaban (Xarelto(*)) 20 mg PO DAILY [facility] Last Admin: 12/17/17 08:52 Dose: 20 mg Sertraline HCl (Zoloft*) 100 mg PO DAILY [facility] Last Admin: 12/17/17 08:52 Dose: 100 mg Sucralfate (Carafate*) 1 gm PO BID AC [facility] Last Admin: 12/17/17 08:52 Dose: 1 gm Tiotropium [place] (Spiriva Cap.Inh*) 1 cap INH DAILY [facility] Last Admin: 12/17/17 08:51 Dose: 1 cap Vital Signs - 8 hr 12/17/17 12/17/17 12/17/17 04:33 05:33 06:31 Temperature Pulse Rate Respiratory Rate Blood Pressure 98/57 93/52 83/70 (mmHg) O2 Sat by Pulse Oximetry 12/17/17 12/17/17 12/17/17 06:40 07:31 07:33 Temperature 97.9 F Pulse Rate Respiratory Rate Blood Pressure 105/60 94/59 (mmHg) O2 Sat by Pulse Oximetry 12/17/17 12/17/17 12/17/17 07:41 08:00 09:33 Temperature Pulse Rate 111 Respiratory 16 16 Rate Blood Pressure 89/75 (mmHg) O2 Sat by Pulse 98 Oximetry 12/17/17 12/17/17 12/17/17 10:57 11:31 11:33 Temperature 98.7 F Pulse Rate 111 Respiratory Rate Blood Pressure 118/65 (mmHg) O2 Sat by Pulse Oximetry Oxygen Devices in Use Now: Nasal Cannula Appearance: 82 yo f in nAD, aAOx3, poor historian, appears dyspneic at rest Eyes: No Scleral Icterus, PERRLA Ears/Nose/Mouth/Throat: NL Teeth, Lips, Gums, Mucous Membranes Moist Neck: NL Appearance and Movements; NL JVP, Trachea Midline Respiratory: Symmetrical Chest Expansion and Respiratory Effort, - - barrell chest, diffuse mild mild lung wheezes and very decreased breath sounds b/l , prolonged exp phase Cardiovascular: NL Sounds; No Murmurs; No JVD, - - irregular, tachy Abdominal: NL Sounds; No Tenderness; No Distention, No Hepatosplenomegaly Lymphatic: No Cervical Adenopathy Extremities: No Edema, No Clubbing, Cyanosis Skin: No Rash or Ulcers, No Nodules or Sclerosis Neurological: Alert and Oriented x 3, NL Muscle Strength and Tone Result Diagrams: 12/17/17 04:59 12/17/17 04:59 Additional Lab and Data: Lab Results 12/16/17 12/16/17 12/16/17 Range/Units 15:39 15:39 15:39 WBC 11.1 H (3.5-10.8) 10^3/ul RBC 3.82 L (4.0-5.4) 10^6/ul Hgb 10.9 L (12.0-16.0) g/dl Hct 34 L (35-47) % MCV 88 (80-97) fL MCH 28 (27-31) pg MCHC 32 (31-36) g/dl RDW 15 (10.5-15) % Plt Count 275 (150-450) 10^3/ul MPV 7.8 (7.4-10.4) um3 Neut % (Auto) 80.9 (38-83) % Lymph % (Auto) 9.7 L (25-47) % [place] % (Auto) 8.2 H (0-7) % Eos % (Auto) 0.7 (0-6) % Baso % (Auto) 0.5 (0-2) % Absolute Neuts (auto) 9.0 H (1.5-7.7) 10^3/ul Absolute Lymphs (auto) 1.1 (1.0-4.8) 10^3/ul Absolute Monos (auto) 0.9 H (0-0.8) 10^3/ul Absolute Eos (auto) 0.1 (0-0.6) 10^3/ul Absolute Basos (auto) 0.1 (0-0.2) 10^3/ul Absolute Nucleated RBC 0 10^3/ul Nucleated RBC % 0 Sodium 140 (139-145) mmol/L Potassium 3.1 L (3.5-5.0) mmol/L Chloride 92 L (101-111) mmol/L Carbon Dioxide 42 H* (22-32) mmol/L Anion Gap 6 (2-11) mmol/L BUN 17 (6-24) mg/dL Creatinine 0.71 (0.51-0.95) mg/dL Est GFR ( Amer) 101.1 (>60) Est GFR (Non-Af Amer) 78.6 (>60) BUN/Creatinine Ratio 23.9 H (8-20) Glucose 95 (70-100) mg/dL Lactic Acid 0.8 (0.5-2.0) mmol/L Calcium 8.3 L (8.6-10.3) mg/dL Magnesium 2.1 (1.9-2.7) mg/dL Total Bilirubin 0.30 (0.2-1.0) mg/dL AST 12 L (13-39) U/L ALT 11 (7-52) U/L Alkaline Phosphatase 37 (34-104) U/L Troponin I 0.01 (<0.04) ng/mL B-Natriuretic Peptide ( - 100) pg/mL Total Protein 5.7 L (6.4-8.9) g/dL Albumin 3.3 (3.2-5.2) g/dL Globulin 2.4 (2-4) g/dL Albumin/Globulin Ratio 1.4 (1-3) TSH 2.09 (0.34-5.60) mcIU/mL 12/16/17 12/16/17 Range/Units 15:39 18:12 WBC (3.5-10.8) 10^3/ul RBC (4.0-5.4) 10^6/ul Hgb (12.0-16.0) g/dl Hct (35-47) % MCV (80-97) fL MCH (27-31) pg MCHC (31-36) g/dl RDW (10.5-15) % Plt Count (150-450) 10^3/ul MPV (7.4-10.4) um3 Neut % (Auto) (38-83) % Lymph % (Auto) (25-47) % [place] % (Auto) (0-7) % Eos % (Auto) (0-6) % Baso % (Auto) (0-2) % Absolute Neuts (auto) (1.5-7.7) 10^3/ul Absolute Lymphs (auto) (1.0-4.8) 10^3/ul Absolute Monos (auto) (0-0.8) 10^3/ul Absolute Eos (auto) (0-0.6) 10^3/ul Absolute Basos (auto) (0-0.2) 10^3/ul Absolute Nucleated RBC 10^3/ul Nucleated RBC % Sodium (139-145) mmol/L Potassium (3.5-5.0) mmol/L Chloride (101-111) mmol/L Carbon Dioxide (22-32) mmol/L Anion Gap (2-11) mmol/L BUN (6-24) mg/dL Creatinine (0.51-0.95) mg/dL Est GFR ( Amer) (>60) Est GFR (Non-Af Amer) (>60) BUN/Creatinine Ratio (8-20) Glucose (70-100) mg/dL Lactic Acid (0.5-2.0) mmol/L Calcium (8.6-10.3) mg/dL Magnesium (1.9-2.7) mg/dL Total Bilirubin (0.2-1.0) mg/dL AST (13-39) U/L ALT (7-52) U/L Alkaline Phosphatase (34-104) U/L Troponin I 0.01 (<0.04) ng/mL B-Natriuretic Peptide 353 H ( - 100) pg/mL Total Protein (6.4-8.9) g/dL Albumin (3.2-5.2) g/dL Globulin (2-4) g/dL Albumin/Globulin Ratio (1-3) TSH (0.34-5.60) mcIU/mL Assess/Plan/Problems-Billing Assessment: 82 yo f with h/o severe COPD (on 02 at 4L and prednisone), chronic A. fib (recent holter showed median HR 109, episodes of HR in 140's for over 8 hrs at a time) presents with a. fib with RVR, asymptomatic - Patient Problems (1) Atrial fibrillation with RVR Comment: will dc/ cardizem gtt start short acting cardizem with hold parameters start digoxin unfortunately is appears that pt's HR is driven by her severe lung disease (2) COPD exacerbation Comment: COPD is acute exacerbation Pt will be placed on Solu Medrol albuterol nebs will be changed to Xopenex due to tachycardia Pt has chronic CO2 retention and chronic hypoxemic respiratory failure at baseline (3) Hypokalemia Comment: replacing PO and IV (4) DVT prophylaxis Comment: cont Xarelto Status and Disposition: OBV will l be changed to inpatient
[2017-12-17] MEDS ORDERED: Potassium Chlor TAB* 20 MEQ TAB.ER PO ONE (12:06)
[2017-12-17] MEDS: Levalbuterol 1.25MG/0.5ML NEB INH SCH ×2 (13:22→20:30)
[2017-12-17] MEDS: KCL 10 MEQ/50 ML IVPREMIX* 10 MEQ/50 ML BAG IV SCH ×2 (13:37→18:14)
[2017-12-17] MEDS: Diltiazem TAB* 60 MG PO SCH ×2 (13:37→16:39)
[2017-12-17] MEDS: methylPREDNISolone SOD 40 MG* 1 ML VIAL IV SCH ×2 (13:38→20:24)
--- NOTE | 2017-12-17 15:06 | ECHO ---
Patient: GILBERT GARCIA [facility] Rec#: [id number] : 1935 Date: 12/17/2017 Age: 82y Height: 160.02 cm / 63.0 in Weight: 81.19 kg / 178.9 lbs Sex: F BSA: 1.84 Room#: [facility] Admit Date#: 12/16/2017 Type: Inpatient Referring: Prosper Matthew MD Reading: Javier Hill MD Senior Bioinformatics Specialist: [employer] Senior Bioinformatics Specialist: Sabina Soto RDCS CC: Mitch Arceo MD CC: Jose Ayers MD Transthoracic Echocardiogram Indication: CHF BP: 117/97 HR: 164 Rhythm: A-Fib Findings History: COPD,a-fib,HTN,GERD,depression-anxiety. Technical Comments: The study is technically difficult. Completed at 1446. The study is technically limited due to patient body habitus. The study is technically limited due to the patient's history of COPD. Left Ventricle: The left ventricular chamber size is normal. Global left ventricular wall motion and contractility are within normal limits. There is normal left ventricular systolic function. The estimated ejection fraction is 55-60%. The assessment of diastolic function is non-diagnostic. Left Atrium: The left atrium is normal in size. Right Ventricle: The right ventricular cavity size is normal. The right ventricular global systolic function is normal. Right Atrium: The right atrial cavity size is normal. Aortic Valve: The aortic valve is trileaflet. There is no evidence of aortic regurgitation. There is no evidence of aortic stenosis. Mitral Valve: The mitral valve leaflets appear normal. There is a trace of mitral regurgitation. Tricuspid Valve: The tricuspid valve leaflets are normal. There is trace to mild tricuspid regurgitation. There is evidence of mild pulmonary hypertension. Pulmonic Valve: The pulmonic valve appears normal. There is no evidence of pulmonic regurgitation. There is no pulmonic stenosis. Pericardium: A trivial pericardial effusion is visualized. A pericardial fat pad is visualized. Aorta: The ascending aorta is not well visualized. The aortic arch is not well visualized. The aortic root is normal in size. Pulmonary Artery: The main pulmonary artery is not well visualized. Venous: The venous system is not well visualized. Conclusions There is normal left ventricular systolic function. The estimated ejection fraction is 55-60%. Global left ventricular wall motion and contractility are within normal limits. Normal cardiac chamber sizes. Functionally benign heart valves. There is evidence of mild pulmonary hypertension. Since the prior echocardiogram completed 10/07/17, pertinent change is prior no pulmonary hypertension noted. Measurements Name Value Normal Range RVIDd (AP) 2D 2.6 cm (0.9 - 2.6) RVDdMajor (2D) 3 cm (2.2 - 4.4) RAd ISD 4CH 5.1 cm (3.4 - 4.9) RA (A4C)W 4.1 cm (2.9 - 4.6) IVSd (2D) 1.2 cm (0.6 - 1) LVPWd (2D) 1 cm (0.6 - 1) LVIDd (2D) 3.6 cm (3.6 - 5.4) LVIDs (2D) 2.8 cm - LV FS (2D) 24 % (25 - 45) Aortic Annulus 1.8 cm (1.4 - 2.6) Ao root diameter (2D) 3.3 cm (2.1 - 3.5) LA dimension (AP) 2D 3.7 cm (2.3 - 3.8) LA:Ao ratio (2D) 5.5 ratio - LAd ISD 4CH 3.7 cm (2.9 - 5.3) Name Value Normal Range LA ESV SP 4CH (A/L) 50 ml - LA ESV SP 2CH (A/L) 65 ml - LA ESV BP (A/L) 59 ml - LA ESV BP (A/L) index 31.96 ml/m2 - LA ESV SP 4CH (MOD) 46 ml - LA ESV SP 2CH (MOD) 62 ml - Name Value Normal Range MV E-wave Vmax 1 m/sec - MV deceleration time 129 msec - LV septal e' Vmax 0.1 m/sec - LV lateral e' Vmax 0.09 m/sec - LV E:e' septal ratio 10 ratio - LV E:e' lateral ratio 11.11 ratio - Name Value Normal Range AV Vmax 1.5 m/sec - AV VTI 24 cm - AV peak gradient 9.31 mmHg - AV mean gradient 4.94 mmHg - LVOT Vmax 1.1 m/sec - LVOT VTI 15.3 cm - LVOT peak gradient 4.52 mmHg - LVOT mean gradient 2.28 mmHg - Name Value Normal Range MR Vmax 4.7 m/sec - MR VTI 98.17 cm - Name Value Normal Range TR Vmax 2.7 m/sec - TR peak gradient 28 mmHg - RAP 8 mmHg - RVSP 36 mmHg - Name Value Normal Range PV Vmax 1 m/sec - PV peak gradient 3.93 mmHg -
[2017-12-17] MEDS: Digoxin TAB* 0.25 MG PO SCH (16:40)
--- NOTE | 2017-12-17 20:54 | CONS ---
CC: Dr. Ayers CARDIOLOGY CONSULTATION REPORT: DATE OF CONSULT: 12/17/17 REFERRAL PHYSICIAN: Dr. Nancy Wesley. REASON FOR CARDIOLOGY CONSULT: Increased ventricular response rate with chronic atrial fibrillation. 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 The patient herself denies palpitations, chest pain, or even shortness of breath, although she does appear visibly dyspneic at rest, which is apparently her baseline. Here, Dr. Wesley has very appropriately added digoxin and the patient's heart rate have come down from the 140s or so down to upper 90s BPM. PAST MEDICAL HISTORY: Includes reportedly chronic AF, 4 L severe oxygen- dependent COPD with hypoxic hypercapnic respiratory failure, tricuspid valve disease, GERD, depression, anxiety, hypertension. OUTPATIENT MEDICATIONS: 1. Protonix 80 mg once a day. 2. Zocor 20 mg once a day. 3. Xarelto 20 mg once a day. 4. Advair Diskus 1 puff inhaled b.i.d. 5. Zaroxolyn 2.5 mg once a day. 6. Singulair 10 mg once a day. 7. Zoloft 100 mg once a day. 8. Carafate 1 g p.o. b.i.d. 9. Spiriva once a day. 10. Prednisone 40 mg once a day. 11. Ascorbic acid 500 mg once a day. 12. Vitamin E 400 units once a day. 13. Diltiazem ER 360 mg once a day. 14. Citracal tablets 1 g p.o. b.i.d. ALLERGIES TO MEDICATIONS: Reported as SULFA. Social history, family history, review of systems unable to obtain other than as per HPI due to the patient being quite dyspneic at rest, limiting her history provision. PHYSICAL EXAM: On general exam, she is a chronically ill-appearing woman, quite pleasant, who appears at least mild to moderately dyspneic at rest and it is difficult for her to speak in full sentences. Temperature 98.7 degrees, blood pressure is 118/65, has been as low as 90 systolic; pulse was initially 150, prior to addition of digoxin today, now her pulses in the high 90s; oxygen saturation is 98%. HEENT: Show the cranium is normocephalic and atraumatic. She has dry mucosal membranes. Neck veins are not distended on our limited assessment. There are no carotid bruits. Visible skin warm and perfused. Affect is appropriate. She appears oriented. Mild kyphoscoliosis on back exam likely age related. Lungs revealed increased expiratory phase consistent with COPD. No rhonchi. Rare wheezes. Cardiac Exam: S1, S2. Irregular rate. Soft holosystolic murmur heard without radiation. There are no murmurs, rubs, or gallops. PMI is nondisplaced. Abdomen is soft, nondistended, and appears benign. Extremities: With 1+ peripheral edema, pulses appear grossly intact. DIAGNOSTIC STUDIES/LAB DATA: 12-lead EKG reviewed, 12/16/17, at 1535, which was atrial fibrillation at 120 beats per minute with non-specific ST-T wave changes. White blood cell count 8.8, hematocrit 32, platelet count 251. Sodium 138, potassium 2.9, chloride 92, bicarbonate is 41, BUN 15, creatinine 0.64. Troponin 0.01 x2. BNP 353. IMPRESSION: Ms. Jacobsen is an 82-year-old woman with a history of severe chronic 4 L oxygen-dependent chronic obstructive pulmonary disease and chronic atrial fibrillation with recent exacerbation of her tachycardia albeit asymptomatic. We do note that she is quite hypokalemic as well. Since addition of digoxin, which will need to be careful with given her hypokalemia, her heart rate is better controlled. The patient herself does not have any acute symptoms that I may able to ascertain, but does have chronic shortness of breath even at rest. RECOMMENDATIONS: 1. I agree with pulmonary observation, digoxin, and aggressive potassium repletion. The patient's magnesium was normal here on admission at 2.1. 2. We will change her Cardizem to 120 mg p.o. t.i.d. given her episodic hypotension and more even bioavailability. 3. Continue oral anticoagulation given CHADS2-VAScF score of at least 3. 4. Other management as per the hospitalist medicine service and I have discussed the case with Dr. Nancy Wesley. 5. Follow up with her usual steel die press set up operator, Dr. Ayers, following discharge. It may end up being in the future she would benefit from single-chamber pacemaker and AV node ablation if her heart rate were not to be able to be well controlled and she were to be clearly symptomatic with that, which she does not appear to be at this time. Dear Dr. Nancy Wesley, many thanks for this kind cardiovascular consultation opportunity. Please do not hesitate to contact me if you have any questions or concerns regarding the patient's cardiovascular consultative care. [id number]/[facility] #: [id number] MTDD
[2017-12-18] MEDS: Diltiazem TAB* 60 MG PO SCH ×3 (00:02→12:35)
[2017-12-18] MEDS: Levalbuterol 1.25MG/0.5ML NEB INH SCH ×3 (01:40→13:37)
[2017-12-18] MEDS: methylPREDNISolone SOD 40 MG* 1 ML VIAL IV SCH ×2 (03:44→12:37)
[2017-12-18] MEDS: Omeprazole CAP* 20 MG PO SCH (05:46)
[2017-12-18 05:57] LABS: ABS Basophils 0 10^3/ul (0-0.2); ABS Eosinophils 0 10^3/ul (0-0.6); ABS Lymphocytes 0.4 10^3/ul (1.0-4.8); ABS Monocytes 0.2 10^3/ul (0-0.8); ABS Nucleated RBC 0 10^3/ul; Eosinophil % 0 % (0-6); Hematocrit 33 % (35-47); Hemoglobin 11.4 g/dl (12.0-16.0); Lymphocyte % 4.1 % (25-47); Mean Corpuscular HGB Conc 34 g/dl (31-36); Mean Corpuscular Hemoglobin 30 pg (27-31); Mean Corpuscular Volume 87 fL (80-97); Mean Platelet Volume 8.1 um3 (7.4-10.4); Nucleated Red Blood Cells % 0; Platelet Count 286 10^3/ul (150-450); Red Blood Count 3.83 10^6/ul (4.0-5.4); Red Cell Distribution Width 14 % (10.5-15); White Blood Count 9.6 10^3/ul (3.5-10.8)
[2017-12-18 06:13] LABS: EGFR Non-African American 90.2 (>60)
[2017-12-18] MEDS: Tiotropium CAP.INH* CAP.INH/18 MCG (USE ORDER SET !) INH SCH (07:32)
[2017-12-18] MEDS: Mometasone/Formoter 200/5 MDI INH SCH (07:32)
[2017-12-18] MEDS: Sucralfate TAB* 1 GM PO SCH (07:47)
[2017-12-18] MEDS: Montelukast Sodium TAB* 10 MG PO SCH (09:30)
[2017-12-18] MEDS: Docusate CAP* 100 MG PO SCH (09:30)
[2017-12-18] MEDS: Sertraline* 100 MG TAB PO SCH (09:30)
[2017-12-18] MEDS: Atorvastatin* 10 MG TAB PO SCH (09:31)
[2017-12-18] MEDS: Rivaroxaban TAB(*) 20 MG TAB PO SCH (09:31)
[2017-12-18] MEDS: Metolazone TAB* 5 MG PO SCH (09:33)
[2017-12-18 12:28] VITALS: BP 141/49
[2017-12-18] MEDS: Digoxin TAB* 0.25 MG PO SCH (17:08)
--- NOTE | 2017-12-18 23:49 | DS ---
CC: Dr. Arceo; Dr. Ayers; Dr. Hill; Dr. Wasserman * DISCHARGE SUMMARY: DATE OF ADMISSION: 12/16/17 DATE OF DISCHARGE: 12/18/17 PRIMARY CARE PROVIDER: Dr. Arceo. DISCHARGE DIAGNOSES: 1. Atrial fibrillation with rapid ventricular response in a patient with history of chronic atrial fibrillation. 2. Chronic obstructive pulmonary disease exacerbation in a patient with history of severe oxygen and prednisone dependent chronic obstructive pulmonary disease. SECONDARY DIAGNOSES: 1. History of chronic obstructive pulmonary disease, on chronic prednisone and oxygen dependent at 4 L. 2. History of atrial fibrillation, chronic, rate controlled. 3. History of chronic hypoxic hypercapnic respiratory failure. 4. History of rheumatic tricuspid disease. 5. Hypertension. 6. Gastroesophageal reflux disease. 7. Anxiety. 8. Depression. MEDICATIONS AT DISCHARGE: Include: 1. The patient's Cardizem, it was changed from CD to short acting at 90 mg 4 times a day. 2. The patient's prednisone was increased from 40 to 60 mg daily. 3. The patient was also started on digoxin 0.25 mg daily. The remaining medications are unchanged and include: 1. Vitamin C 500 mg daily. 2. Calcium citrate 1000 mg b.i.d. 3. Advair Diskus 250/50, 1 puff inhalation b.i.d. 4. Zaroxolyn 2.5 mg daily. 5. Singulair 10 mg daily. 6. Protonix 40 mg daily. 7. Xarelto 20 mg daily. 8. Zoloft 100 mg daily. 9. Zocor 20 mg daily. 10. Carafate 1 g b.i.d. a.c. 11. Spiriva 1 inhalation daily. 12. Vitamin E 400 units daily. LABORATORY DATA AND STUDIES PERFORMED DURING THE HOSPITAL STAY: Included On , sodium of 139, potassium 3.9, chloride 91, carbon dioxide 44, BUN 11, creatinine 0.63. The patient's digoxin level on the morning of 12/18/17 was 1.2. White blood cell count of 9.6, hemoglobin 11.4, hematocrit of 33, and platelets of 186,000. Transthoracic echocardiogram obtained on 12/16/17, showed EF of 55% to 60% with normal left ventricular systolic function. Functionally benign heart valve. There was evidence of mild pulmonary hypertension. Portable chest x-ray on 12/16/17, impression: "Low lung volumes. Small bibasilar infiltrates." HOSPITALIZATION COURSE: Jenny Jacobsen is an 82-year-old female with history of severe COPD and chronic atrial fibrillation, who went over to see Dr. Ayers in his office for a routine followup. She was noted to have atrial fibrillation with rapid ventricular response with the heart rate in the 150s on followup EKG. She was at that point sent to the ED for evaluation. The patient herself appears to be quite dyspneic at rest, but has no complaints. Stated that her breathing is as usual. She denies any chest pain or palpitations. In fact, she has had no complaints throughout her hospital stay and she was not really sure why she was referred to the ED. Initially, she was placed on Cardizem drip, but with her Cardizem drip level at 5 mg/hour, her pressures were in the 90s. She was loaded with a dose of intravenous digoxin and that seemed to control her atrial fibrillation. I have asked Dr. Hill to see the patient in evaluation. Dr. Hill recommended short-term acting Cardizem for a better AFib control. She was started on 90 mg of Cardizem immediate release 4 times a day, which she tolerated well and she agreed to continue it at home. Her Cardizem CD was discontinued. The patient was also noted to be in chronic obstructive pulmonary disease exacerbation, although once again she had no complaints. She was placed on intravenous Solu- Medrol when in the hospital and she was increased on her prednisone dose from 40 mg to 60 mg daily at discharge. At discharge, the patient was placed on digoxin and her digoxin level is to be obtained in 1 week. The patient was given a script for her blood draw. Please note that by the time of her discharge, the patient's heart rate was controlled when nonambulatory, but when ambulatory, her heart rate would go up to 140s and 150s. Please also note that from my review of the patient's Holter report within the past couple of months, the patient's baseline heart rate is 109 median with heart rate in the 150s occasionally. It seems that due to the patient's very severe chronic obstructive pulmonary disease, her atrial fibrillation may be difficult to control in the future. Dr. Hill also recommended evaluation for possibility of pacemaker placement and ablation. At discharge, the patient has no complaint. She is still appearing to be dyspneic at rest, but once again she is tolerating it and states that this is the way "she is." Her heart rate is in the 90s when nonambulatory. She is going to be discharged home with recommendation to follow up with her primary care provider in approximately 4 to 7 days and follow up with Dr. Ayers in 1 week. Digoxin level is to be checked in 1 week also. PHYSICAL EXAMINATION: At the time of discharge, blood pressure of 141/49, heart rate 112 and irregularly irregular, respiratory rate 24, oxygen saturation 100% on 4 L of oxygen nasal cannula, temperature 98.3. General: This is a very pleasant 82-year-old female, who is in no acute distress. Alert , awake, and oriented x3. The patient is a rather poor historian though. HEENT : Head is atraumatic, normocephalic. Eyes: Pupils are equal, reactive to light and accommodation. Oropharynx is clear. Mucosa moist. Neck: Supple. No JVD. No bruits bilaterally. Cardiovascular: Irregularly irregular rhythm. No murmur. Respiratory: The patient has barrel chest. The patient has decreased breath sounds bilaterally with scant wheezes in bilateral lower and mid lungs. Abdomen: Soft, nontender. Bowel sounds are present in all 4 quadrants. Extremities: There is no edema. Pulses are +2 bilaterally. No clubbing or cyanosis. Neuro Evaluation: Speech is clear. Cranial nerves II through XII grossly intact. Motor strength is 5/5 bilaterally. Please note that this is a short summary of the patient's hospitalization. Please refer to further medical records for details. TIME SPENT: Approximately 45 minutes were spent on the patient's discharge. [id number]/[facility] #: [id number] [facility]ERSabine
== END 2017-12-18 17:40 | disposition home or self-care (01) | DRG 191 ==
LOC: ED 15:01 → MEDTELE 21:41 → OBSVTOIN 12-17 14:50
PROVIDERS: ADMIT Hospitalist; ATTEND Internal Medicine
DX: J44.1 Chronic obstructive pulmonary disease with (acute) exacerbation (principal); J96.12 Chronic respiratory failure with hypercapnia; J96.11 Chronic respiratory failure with hypoxia; I48.2 Chronic atrial fibrillation; Z99.81 Dependence on supplemental oxygen; K21.9 Gastro-esophageal reflux disease without esophagitis; F41.9 Anxiety disorder, unspecified; F32.9 Major depressive disorder, single episode, unspecified; I10 Essential (primary) hypertension; I07.9 Rheumatic tricuspid valve disease, unspecified; Z79.01 Long term (current) use of anticoagulants; Z79.52 Long term (current) use of systemic steroids; Z79.899 Other long term (current) drug therapy; Z88.2 Allergy status to sulfonamides; Z87.891 Personal history of nicotine dependence; Z82.49 Family history of ischemic heart disease and other diseases of the circulatory system; Z83.3 Family history of diabetes mellitus; D64.9 Anemia, unspecified; E87.6 Hypokalemia
CPT/HCPCS: 36415; 71045; 80048; 80053; 80162; 83605; 83735; 83880; 84443; 84484; 85025; 93005; 93306; 94640; 99285; A9270-GY; J1160; J2920; J3480; J7512

== ENCOUNTER 2018-07-16 10:42 | Emergency (ER) | payer MEDICARE ==
--- NOTE | 2018-07-16 12:28 | ED ---
GI/ HPI - HPI Summary HPI Summary: This patient is a 82 year old female presenting to [facility] accompanied by a female staff nurse icu resource team with a chief complaint of constipation since 1-3 weeks ago. Patient suffers from mild dementia and the time range is not completely accurate. Patients staff nurse icu resource team states that she only learned about the patients constipation today. The pain is rated 0/10 in severity. Symptoms aggravated by nothing. Symptoms alleviated by nothing. Patient additionally reports very mild abd pain when palpating her abd. Patient denies nausea, vomiting. Patient is on oxygen due to a prior hx of emphysema. - History of Current Complaint Chief Complaint: EDGeneral Time Seen by Provider: 07/16/18 12:07 Stated Complaint: CONSTIPATION FOR WEEK Hx Obtained From: Patient Onset/Duration: Started Weeks Ago, Still Present Timing: Constant Severity: Mild Pain Intensity: 0 Associated Signs and Symptoms: Positive: Negative - nausea, vomiting, Constipation Aggravating Factor(s): Nothing Alleviating Factor(s): Nothing - Additional Pertinent History Primary Care Physician: MIGUELINA - Allergy/Home Medications Allergies/Adverse Reactions: Allergies Allergy/AdvReac Type Severity Reaction Status Date / Time Sulfa (Sulfonamide Allergy Unknown Verified 12/16/17 16:12 Antibiotics) Reaction Details PMH/Surg Hx/FS Hx/Imm Hx Previously Healthy: No Endocrine/Hematology History: Denies: Hx Diabetes Cardiovascular History: Reports: Hx Angina, Hx Atrial Fibrillation, Hx Hypercholesterolemia, Hx Hypertension Denies: Hx Congestive Heart Failure Respiratory History: Reports: Hx Chronic Obstructive Pulmonary Disease (COPD) Denies: Hx Asthma History: Denies: Hx Renal Disease Sensory History: Reports: Hx Contacts or Glasses, Hx Hearing Aid Opthamlomology History: Reports: Hx Contacts or Glasses - Cancer History Hx Chemotherapy: No Hx Radiation Therapy: No - Surgical History Surgery Procedure, Year, and Place: TUBAL LIGATION, APPENDECTOMY Infectious Disease History: No Infectious Disease History: Reports: Hx Shingles Denies: History Other Infectious Disease, Traveled Outside the [place] in Last 30 Days - Family History Known Family History: Positive: Hypertension - Social History Lives: With Family Alcohol Use: Daily Hx Substance Use: No Substance Use Type: Reports: None Hx Tobacco Use: Yes Smoking Status (MU): Former Smoker Type: Cigarettes Review of Systems Negative: Fever Positive: Abdominal Pain, Other - constipation. Negative: Vomiting, Nausea All Other Systems Reviewed And Are Negative: Yes Physical Exam - Summary Physical Exam Summary: Appearance: Well appearing, no pain distress Skin: warm, dry, reflects adequate perfusion Head/face: normal Eyes: EOMI, BRIAN ENT: mucous membranes moist Neck: supple, non-tender Respiratory: Diminished breath sounds, pursed lip breathing Cardiovascular: RRR, pulses symmetrical Abdomen: non-tender, soft Bowel Sounds: present Musculoskeletal: normal, strength/ROM intact Neuro: normal, sensory motor intact, A&Ox3 Triage Information Reviewed: Yes Vital Signs On Initial Exam: Initial Vitals Temp Pulse Resp BP Pulse Ox 97 F 80 18 116/47 98 07/16/18 10:58 07/16/18 10:58 07/16/18 10:58 07/16/18 10:58 07/16/18 10:58 Vital Signs Reviewed: Yes Diagnostics - Vital Signs Vital Signs Temp Pulse Resp BP Pulse Ox 07/16/18 10:58 97 F 80 18 116/47 98 - Laboratory Lab Statement: Any lab studies that have been ordered have been reviewed, and results considered in the medical decision making process. - Radiology Abd XR Radiology Interpretation Completed By: Radiologist Summary of Radiographic Findings: Abd XR reveals, per radiologist, IMPRESSION: NONOBSTRUCTIVE BOWEL GAS PATTERN. LARGE AMOUNT OF STOOL THROUGHOUT THE COLON. ED physician has reviewed this radiology report. Re-Evaluation - Re-Evaluation First Eval Re-Evaluation Time: 12:20 Change: Improved Comment: Patient received a soap suds enema on 1220 and is feeling considerable relief. GIGU Course/Dx - Course Course Of Treatment: Nurse's notes reviewed. X-ray shows widespread constipation. Abdomen is soft and she is comfortable. There is no fecal impaction on rectal exam. I administered a soapsuds enema and the patient passed a large amount of stool with improvement. Discharged with outpatient MiraLAX. - Diagnoses Differential Diagnoses - Female: Other - Constipation, bowel obstruction Provider Diagnoses: Constipation Discharge - Sign-Out/Discharge Documenting (check all that apply): Patient Departure - Discharge Plan Condition: Improved Disposition: HOME Patient Education Materials: Constipation (ED), High Fiber Diet (ED) Referrals: Mitch Arceo MD [Primary Care Provider] - Additional Instructions: High-fiber diet. MiraLAX as needed mixed into liquid or diet. Return if worse fever, abdominal pain, worse, new symptoms or other concerns. Follow-up with family doctor on Wednesday - Billing Disposition and Condition Condition: IMPROVED Disposition: Home - Attestation Statements Document Initiated by Troy: Yes Documenting Scribe: Linnea Bronson Provider For Whom Troy is Documenting (Include Credential): Warren Hedrick MD Scribe Attestation: Linnea Moreau, scribed for Warren Hedrick MD on 07/16/18 at 1517. Scribe Documentation Reviewed: Yes Provider Attestation: The documentation as recorded by the Linnea matos accurately reflects the service I personally performed and the decisions made by , Warren Hedrick MD Status of Scribe Document: Viewed
[2018-07-16 13:08] VITALS: BP 120/48
== END 2018-07-16 13:06 | disposition home or self-care (01) ==
LOC: ED 10:42
DX: K59.00 Constipation, unspecified (principal); R10.9 Unspecified abdominal pain; Z87.891 Personal history of nicotine dependence; Z86.79 Personal history of other diseases of the circulatory system; Z88.2 Allergy status to sulfonamides
CPT/HCPCS: 74018; 99283

== ENCOUNTER 2022-04-20 12:07 | Inpatient (IN) ==
[2022-04-20 13:50] LABS: ABS Neutrophils 17.4 10^3/ul (1.5-7.7); Hematocrit 31 % (35-47); Hemoglobin 9.8 g/dL (12.0-16.0); Mean Corpuscular HGB Conc 32 g/dL (31-36); Mean Corpuscular Hemoglobin 25 pg (27-31); Mean Corpuscular Volume 79 fL (80-97); Mean Platelet Volume 8.6 fL (7.4-10.4); Platelet Count 403 10^3/uL (150-450); Red Blood Count 3.88 10^6 /uL (3.70-4.87); Red Cell Distribution Width 15 % (10-15); White Blood Count 19.4 10^3/uL (3.5-10.8)
[2022-04-20 14:09] LABS: High Sens Troponin Baseline 24 pg/mL (<15)
[2022-04-20 14:56] LABS: TSH Ultra Thyroid Stim Horm 1.52 mcIU/mL (0.34-5.60)
[2022-04-20] MEDS ORDERED: NS 0.9% 1000 ml BAG 1,000 ML IV ONE (14:59)
[2022-04-20] MEDS ORDERED: NS 0.9% 1000 ml BAG 1,000 ML IV SCH ×2 (15:00→17:45)
[2022-04-20] MEDS ORDERED: cefTRIAXone 1 gm/50 mL D5W 1 GM/50 ML BAG IV ONE ×2 (15:04→15:41)
[2022-04-20 15:09] LABS: ALT 10 U/L (7-52); AST 13 U/L (13-39); Albumin 3.7 g/dL (3.2-5.2); Albumin/Globulin Ratio 1.9 (1-3); Alkaline Phosphatase 61 U/L (35-149); Anion Gap 6 mmol/L (2-11); Blood Urea Nitrogen 22 mg/dL (6-24); CO2 Carbon Dioxide 38 mmol/L (22-32); Calcium 9.1 mg/dL (8.6-10.3); Chloride 90 mmol/L (101-111); Digoxin 1.6 ng/ml (0.8-2.0); Glucose 180 mg/dL (70-100); Magnesium 1.9 mg/dL (1.9-2.7); Potassium 3.7 mmol/L (3.5-5.0); Sodium 134 mmol/L (135-145); Total Protein 5.7 g/dL (6.4-8.9); eGFR CKD-EPI 83.7 (>60)
[2022-04-20] MEDS ORDERED: Acetaminophen IV 1 GM/100ML 1,000 MG/100 ML BAG IV ONE (15:14)
[2022-04-20 15:23] LABS: High Sensitivity Troponin 1 Hr 19 pg/mL (<15)
[2022-04-20 15:24] LABS: Urine Appearance Slightly Cloudy; Urine Bilirubin Negative (Negative); Urine Blood Trace (Intact) (Negative); Urine Color Yellow; Urine Glucose Negative (Negative); Urine Ketones Negative (Negative); Urine Protein 1+ (30 mg/dL) (Negative); Urine Specific Gravity 1.025 (1.005-1.030); Urine pH 6.5 (5.0-9.0)
[2022-04-20 15:25] LABS: Urine Nitrite Negative (Negative); Urine Urobilinogen 0.2 (Negative) (Negative)
[2022-04-20 15:37] LABS: PCO2 Arterial 52 mmHg (35-45); PO2 Arterial 192 mmHg (80-100)
[2022-04-20 15:42] LABS: Urine Bacteria Absent (Absent); Urine Red Blood Cell Trace(0-2/hpf) (Absent); Urine Squamous Epithelial Cell Present (Absent); Urine Transitional Epithelial Present (Absent); Urine White Blood Cell 1+(6-10/hpf) (Absent)
[2022-04-20] MEDS ORDERED: Ampicillin ADVAN 2 GM in NS 0.9% 100 ml BAG 100 ML IVPB ONE (15:45)
[2022-04-20] MEDS ORDERED: Vancomycin 1,000 MG in NS 0.9% 250 ml 250 ML IVPB ONE (15:46)
[2022-04-20] MEDS ORDERED: Acyclovir IV 620 MG in NS 0.9% 100 ml BAG 100 ML IVPB ONE (16:07)
[2022-04-20] MEDS ORDERED: Iohexol 350 (CONTRAST) 500 ML MDV IV ONE (16:59)
[2022-04-20 17:14] LABS: INR 1.15 (0.89-1.11)
[2022-04-20] MEDS ORDERED: Vancomycin per Pharmacy 1 EA NOTE FOLLOW UP SCH (18:00)
[2022-04-20 18:26] LABS: Thyroid Peroxidase Antibodies < 0.25 IU/mL (<9)
[2022-04-20 18:30] LABS: Vitamin B12 570 pg/mL (180-914)
[2022-04-20] MEDS ORDERED: Ampicillin ADVAN 2 GM in NS 0.9% 100 ML 100 ML IVPB ONE (20:30)
[2022-04-20 20:42] LABS: Erythrocyte Sed Rate 67 mm/Hr (0-29)
[2022-04-20] MEDS: dilTIAZem 30 MG TAB PO SCH (22:20)
[2022-04-21] MEDS: Acyclovir IV 620 MG in NS 0.9% 100 ml BAG 100 ML IVPB SCH ×3 (02:40→19:52)
[2022-04-21] MEDS: Ampicillin ADVAN 2 GM in NS 0.9% 100 ml BAG 100 ML IVPB SCH ×3 (02:40→11:26)
[2022-04-21] MEDS: cefTRIAXone 2 gm/50 mL D5W 2 GM/50 ML BAG IV SCH ×2 (04:53→15:27)
[2022-04-21 05:22] LABS: ABS Lymphocytes 1.5 10^3/ul (1.0-4.8); ABS Neutrophils 9.5 10^3/ul (1.5-7.7); Eosinophil % 0.1 %; Hematocrit 28 % (35-47); Hemoglobin 8.7 g/dL (12.0-16.0); Lymphocyte % 12.4 %; Mean Corpuscular HGB Conc 31 g/dL (31-36); Mean Corpuscular Hemoglobin 25 pg (27-31); Mean Corpuscular Volume 80 fL (80-97); Mean Platelet Volume 8.5 fL (7.4-10.4); Platelet Count 344 10^3/uL (150-450); Red Cell Distribution Width 15 % (10-15)
[2022-04-21 05:28] LABS: INR 1.14 (0.89-1.11)
[2022-04-21 05:42] LABS: Calcium 8.4 mg/dL (8.6-10.3); Potassium 3.3 mmol/L (3.5-5.0); eGFR CKD-EPI 87.9 (>60)
[2022-04-21] MEDS ORDERED: Vancomycin 750 MG in NS 0.9% 250 ML IVPB SCH (06:00)
[2022-04-21] MEDS ORDERED: Potassium Chlor 20 meq TAB.ER PO ONE (07:50)
[2022-04-21] MEDS ORDERED: NON FORMULARY MED (Diltiazem Hcl 300 mg capsule,extended release 24hr) PO SCH (09:00)
[2022-04-21] MEDS: dilTIAZem 30 MG TAB PO SCH ×4 (11:25→19:52)
[2022-04-21] MEDS ORDERED: Potassium Chloride LIQUID 20 MEQ/15 ML LIQUID PO ONE ×2 (12:48→15:30)
[2022-04-21] MEDS ORDERED: Ampicillin ADVAN 2 GM in NS 0.9% 100 ml BAG 100 ML IVPB SCH ×2 (14:00→15:30)
[2022-04-21] MEDS ORDERED: Albuterol HFA INHALER 8 gm MDI INH PRN (15:29)
[2022-04-21] MEDS: FLUTICAS/UMECLI/VILANT 100-62.5-25 MDI (NF) INH SCH (16:40)
[2022-04-22] MEDS: Acyclovir IV 620 MG in NS 0.9% 100 ml BAG 100 ML IVPB SCH ×3 (02:13→20:52)
[2022-04-22] MEDS: cefTRIAXone 2 gm/50 mL D5W 2 GM/50 ML BAG IV SCH ×2 (03:41→16:19)
[2022-04-22] MEDS ORDERED: Vancomycin Trough Check NOTE FOLLOW UP ONE (05:30)
[2022-04-22 05:54] LABS: Vancomycin Trough 3.8 mcg/mL; eGFR CKD-EPI 85.5 (>60)
[2022-04-22] MEDS: FLUTICAS/UMECLI/VILANT 100-62.5-25 MDI (NF) INH SCH (07:16)
[2022-04-22 08:07] LABS: ABS Lymphocytes 1.8 10^3/ul (1.0-4.8); ABS Monocytes 0.8 10^3/ul (0-0.8); ABS Neutrophils 7.6 10^3/ul (1.5-7.7); Eosinophil % 0.2 %; Hematocrit 29 % (35-47); Hemoglobin 9.3 g/dL (12.0-16.0); Lymphocyte % 17.2 %; Mean Corpuscular HGB Conc 32 g/dL (31-36); Mean Corpuscular Hemoglobin 26 pg (27-31); Mean Corpuscular Volume 81 fL (80-97); Mean Platelet Volume 8.2 fL (7.4-10.4); Platelet Count 338 10^3/uL (150-450); Red Cell Distribution Width 15 % (10-15); White Blood Count 10.2 10^3/uL (3.5-10.8)
[2022-04-22 08:54] LABS: Calcium 8.7 mg/dL (8.6-10.3); Magnesium 1.9 mg/dL (1.9-2.7); Potassium 3.9 mmol/L (3.5-5.0); eGFR CKD-EPI 87.5 (>60)
[2022-04-22] MEDS: dilTIAZem 30 MG TAB PO SCH ×4 (10:06→20:32)
[2022-04-23] MEDS: cefTRIAXone 2 gm/50 mL D5W 2 GM/50 ML BAG IV SCH (03:31)
[2022-04-23] MEDS ORDERED: cefTRIAXone 1 gm/50 mL D5W 1 GM/50 ML BAG IV SCH (04:00)
[2022-04-23] MEDS: Acyclovir IV 620 MG in NS 0.9% 100 ml BAG 100 ML IVPB SCH ×3 (04:17→20:52)
[2022-04-23 08:08] LABS: INR 1.1 (0.89-1.11)
[2022-04-23] MEDS: FLUTICAS/UMECLI/VILANT 100-62.5-25 MDI (NF) INH SCH (09:12)
[2022-04-23] MEDS ORDERED: Midazolam 2 mg/2 ml VIAL 1 mg/ml 2 ml VIAL (2 mg) ONE (09:33)
[2022-04-23] MEDS ORDERED: fentaNYL 100 mcg/2 ml 50 MCG/ML VIAL ONE (09:33)
[2022-04-23 11:15] LABS: Body Fluid Source Cerebral Spinal
[2022-04-23 11:32] LABS: CSF Glucose 64 mg/dL (40-70)
[2022-04-23] MEDS: dilTIAZem 30 MG TAB PO SCH ×4 (11:51→20:52)
[2022-04-23 13:18] LABS: Body Fluid Appearance Clear; Body Fluid Color Colorless; Body Fluid WBC 12 /mcL; CSF Tube # 4
[2022-04-23 13:47] LABS: Body Fluid Mono 38 %; Body Fluid Total Cells Counted 200
[2022-04-24] MEDS: Acyclovir IV 620 MG in NS 0.9% 100 ml BAG 100 ML IVPB SCH ×3 (03:47→20:20)
[2022-04-24] MEDS: FLUTICAS/UMECLI/VILANT 100-62.5-25 MDI (NF) INH SCH (08:12)
[2022-04-24] MEDS: dilTIAZem 30 MG TAB PO SCH ×4 (10:39→20:17)
[2022-04-24 16:08] LABS: Anaplasma phagocytophilum Negative (Negative); B. miyamotoi PCR, B Negative (Negative); Babesia divergens/MO-1 Negative (Negative); Babesia ducani Negative (Negative); Ehrlichia chaffeensis Negative (Negative); Ehrlichia ewingii/canis Negative (Negative); Ehrlichia muris eauclairensis Negative (Negative)
[2022-04-24 21:53] LABS: HSV 1 PCR, CSF Negative (Negative); HSV 2 PCR, CSF Negative (Negative)
[2022-04-25] MEDS: Acyclovir IV 620 MG in NS 0.9% 100 ml BAG 100 ML IVPB SCH ×3 (04:21→20:11)
[2022-04-25 06:33] LABS: ABS Basophils 0.1 10^3/ul (0-0.2); ABS Eosinophils 0.1 10^3/ul (0-0.6); ABS Monocytes 0.9 10^3/ul (0-0.8); ABS Neutrophils 10.2 10^3/ul (1.5-7.7); Eosinophil % 0.4 %; Hematocrit 31 % (35-47); Hemoglobin 9.9 g/dL (12.0-16.0); Mean Corpuscular HGB Conc 32 g/dL (31-36); Mean Corpuscular Hemoglobin 26 pg (27-31); Mean Corpuscular Volume 81 fL (80-97); Mean Platelet Volume 8.8 fL (7.4-10.4); Platelet Count 403 10^3/uL (150-450); Red Blood Count 3.84 10^6 /uL (3.70-4.87); Red Cell Distribution Width 15 % (10-15); White Blood Count 13.1 10^3/uL (3.5-10.8)
[2022-04-25 07:03] LABS: Calcium 8.8 mg/dL (8.6-10.3); Potassium 3.9 mmol/L (3.5-5.0); eGFR CKD-EPI 89.1 (>60)
[2022-04-25] MEDS: FLUTICAS/UMECLI/VILANT 100-62.5-25 MDI (NF) INH SCH (07:14)
[2022-04-25] MEDS: dilTIAZem 30 MG TAB PO SCH ×4 (09:32→20:11)
[2022-04-26] MEDS: Acyclovir IV 620 MG in NS 0.9% 100 ml BAG 100 ML IVPB SCH ×3 (03:56→20:05)
[2022-04-26 06:22] LABS: ABS Basophils 0.1 10^3/ul (0-0.2); ABS Lymphocytes 1.3 10^3/ul (1.0-4.8); ABS Monocytes 1.3 10^3/ul (0-0.8); ABS Neutrophils 17.1 10^3/ul (1.5-7.7); Eosinophil % 0.1 %; Hematocrit 33 % (35-47); Hemoglobin 10.6 g/dL (12.0-16.0); Lymphocyte % 6.4 %; Mean Corpuscular HGB Conc 33 g/dL (31-36); Mean Corpuscular Hemoglobin 26 pg (27-31); Mean Corpuscular Volume 80 fL (80-97); Mean Platelet Volume 8.9 fL (7.4-10.4); Platelet Count 423 10^3/uL (150-450); Red Blood Count 4.07 10^6 /uL (3.70-4.87); Red Cell Distribution Width 15 % (10-15); White Blood Count 19.8 10^3/uL (3.5-10.8)
[2022-04-26] MEDS: FLUTICAS/UMECLI/VILANT 100-62.5-25 MDI (NF) INH SCH (07:24)
[2022-04-26] MEDS: dilTIAZem 30 MG TAB PO SCH ×4 (09:17→20:05)
[2022-04-27] MEDS: Acyclovir IV 620 MG in NS 0.9% 100 ml BAG 100 ML IVPB SCH ×2 (04:23→17:45)
[2022-04-27 06:39] LABS: ABS Lymphocytes 0.9 10^3/ul (1.0-4.8); ABS Monocytes 0.9 10^3/ul (0-0.8); ABS Neutrophils 18.4 10^3/ul (1.5-7.7); Eosinophil % 0.1 %; Hematocrit 32 % (35-47); Hemoglobin 10.1 g/dL (12.0-16.0); Lymphocyte % 4.7 %; Mean Corpuscular HGB Conc 32 g/dL (31-36); Mean Corpuscular Hemoglobin 26 pg (27-31); Mean Corpuscular Volume 80 fL (80-97); Mean Platelet Volume 8.4 fL (7.4-10.4); Platelet Count 425 10^3/uL (150-450); Red Blood Count 3.98 10^6 /uL (3.70-4.87); Red Cell Distribution Width 15 % (10-15); White Blood Count 20.3 10^3/uL (3.5-10.8)
[2022-04-27 07:31] LABS: Calcium 8.2 mg/dL (8.6-10.3); Potassium 3.8 mmol/L (3.5-5.0); eGFR CKD-EPI 50.3 (>60)
[2022-04-27] MEDS: FLUTICAS/UMECLI/VILANT 100-62.5-25 MDI (NF) INH SCH (07:45)
[2022-04-27] MEDS ORDERED: NS 0.9% 1000 ml BAG 1,000 ML IV SCH (08:00)
[2022-04-27] MEDS: dilTIAZem 30 MG TAB PO SCH ×4 (09:57→21:33)
[2022-04-27 13:21] LABS: Varicella Zoster Result Negative (Negative); Varicella Zoster Source CSF
[2022-04-27] MEDS: NS 0.9% 1000 ml BAG 1,000 ML IV SCH (21:58)
[2022-04-28] MEDS: Acyclovir IV 620 MG in NS 0.9% 100 ml BAG 100 ML IVPB SCH (05:33)
[2022-04-28 06:07] LABS: ABS Eosinophils 0.1 10^3/ul (0-0.6); ABS Lymphocytes 1.2 10^3/ul (1.0-4.8); ABS Neutrophils 15.5 10^3/ul (1.5-7.7); Eosinophil % 0.3 %; Hematocrit 30 % (35-47); Hemoglobin 9.5 g/dL (12.0-16.0); Lymphocyte % 6.5 %; Mean Corpuscular HGB Conc 32 g/dL (31-36); Mean Corpuscular Hemoglobin 26 pg (27-31); Mean Corpuscular Volume 80 fL (80-97); Mean Platelet Volume 8.3 fL (7.4-10.4); Platelet Count 388 10^3/uL (150-450); Red Cell Distribution Width 15 % (10-15); White Blood Count 17.8 10^3/uL (3.5-10.8)
[2022-04-28 06:23] LABS: INR 1.43 (0.89-1.11)
[2022-04-28 06:51] LABS: Calcium 7.7 mg/dL (8.6-10.3); Potassium 3.5 mmol/L (3.5-5.0); eGFR CKD-EPI 74.6 (>60)
[2022-04-28] MEDS: FLUTICAS/UMECLI/VILANT 100-62.5-25 MDI (NF) INH SCH (07:08)
[2022-04-28 08:04] LABS: Digoxin 1.4 ng/ml (0.8-2.0)
[2022-04-28] MEDS: dilTIAZem 30 MG TAB PO SCH ×4 (08:30→21:47)
[2022-04-28] MEDS: NS 0.9% 1000 ml BAG 1,000 ML IV SCH (08:37)
[2022-04-29] MEDS: FLUTICAS/UMECLI/VILANT 100-62.5-25 MDI (NF) INH SCH (07:24)
[2022-04-29 07:30] LABS: ABS Eosinophils 0.1 10^3/ul (0-0.6); ABS Lymphocytes 1.3 10^3/ul (1.0-4.8); ABS Neutrophils 12.3 10^3/ul (1.5-7.7); Eosinophil % 0.7 %; Hematocrit 30 % (35-47); Hemoglobin 9.3 g/dL (12.0-16.0); Lymphocyte % 8.6 %; Mean Corpuscular HGB Conc 32 g/dL (31-36); Mean Corpuscular Hemoglobin 26 pg (27-31); Mean Corpuscular Volume 81 fL (80-97); Platelet Count 384 10^3/uL (150-450); Red Blood Count 3.67 10^6 /uL (3.70-4.87); Red Cell Distribution Width 15 % (10-15); White Blood Count 14.7 10^3/uL (3.5-10.8)
[2022-04-29 07:58] LABS: Calcium 7.8 mg/dL (8.6-10.3); Digoxin 1.1 ng/ml (0.8-2.0); Potassium 3.4 mmol/L (3.5-5.0); eGFR CKD-EPI 86.5 (>60)
[2022-04-29] MEDS ORDERED: Potassium Chlor 20 meq TAB.ER PO ONE (09:08)
[2022-04-29] MEDS: dilTIAZem 30 MG TAB PO SCH ×4 (10:36→20:51)
[2022-04-30 05:13] LABS: ABS Basophils 0.1 10^3/ul (0-0.2); ABS Eosinophils 0.1 10^3/ul (0-0.6); ABS Lymphocytes 1.4 10^3/ul (1.0-4.8); ABS Neutrophils 12.7 10^3/ul (1.5-7.7); Eosinophil % 0.8 %; Hematocrit 29 % (35-47); Hemoglobin 9.3 g/dL (12.0-16.0); Lymphocyte % 8.9 %; Mean Corpuscular HGB Conc 32 g/dL (31-36); Mean Corpuscular Hemoglobin 26 pg (27-31); Mean Corpuscular Volume 81 fL (80-97); Mean Platelet Volume 8.5 fL (7.4-10.4); Platelet Count 407 10^3/uL (150-450); Red Blood Count 3.59 10^6 /uL (3.70-4.87); Red Cell Distribution Width 15 % (10-15); White Blood Count 15.2 10^3/uL (3.5-10.8)
[2022-04-30] MEDS: FLUTICAS/UMECLI/VILANT 100-62.5-25 MDI (NF) INH SCH (07:12)
[2022-04-30] MEDS: dilTIAZem 30 MG TAB PO SCH ×4 (08:48→21:34)
[2022-05-01 04:49] LABS: ABS Eosinophils 0.1 10^3/ul (0-0.6); ABS Lymphocytes 1.2 10^3/ul (1.0-4.8); ABS Monocytes 1.2 10^3/ul (0-0.8); ABS Neutrophils 12.3 10^3/ul (1.5-7.7); Eosinophil % 0.6 %; Hematocrit 31 % (35-47); Hemoglobin 9.5 g/dL (12.0-16.0); Mean Corpuscular HGB Conc 31 g/dL (31-36); Mean Corpuscular Hemoglobin 25 pg (27-31); Mean Corpuscular Volume 81 fL (80-97); Mean Platelet Volume 8.1 fL (7.4-10.4); Platelet Count 437 10^3/uL (150-450); Red Blood Count 3.84 10^6 /uL (3.70-4.87); Red Cell Distribution Width 15 % (10-15); White Blood Count 14.8 10^3/uL (3.5-10.8)
[2022-05-01 05:08] LABS: C Reactive Protein 66.41 mg/L (<8.01); Digoxin 1.1 ng/ml (0.8-2.0)
[2022-05-01] MEDS: FLUTICAS/UMECLI/VILANT 100-62.5-25 MDI (NF) INH SCH (07:13)
[2022-05-01] MEDS: dilTIAZem 30 MG TAB PO SCH ×2 (10:59→14:42)
[2022-05-01 13:29] VITALS: BP 124/61
== END 2022-05-01 15:14 | disposition swing bed (61) | DRG 871 ==
LOC: EDHOLD 12:07 → ED 12:07 → SUATTDRO 16:25 → EDHOLD 21:18 → MEDTELE 22:07 → SUATTDRO 04-22 17:16
PROVIDERS: ADMIT Internal Medicine; ATTEND Pediatrics

== ENCOUNTER 2022-05-01 15:23 | Inpatient (IN) ==
[2022-05-01] MEDS ORDERED: ALBUTEROL SULFATE 1.25 MG/3 ML INH PRN (15:44)
[2022-05-01] MEDS ORDERED: Albuterol HFA INHALER 8 gm MDI INH PRN (15:48)
[2022-05-01] MEDS: dilTIAZem 30 MG TAB PO SCH ×3 (18:03→22:50)
[2022-05-02] MEDS: CMCS: FLUTICAS/UMECLI/VILANT 100-62.5-25 MDI (NF) INH SCH (07:29)
[2022-05-02] MEDS: dilTIAZem 30 MG TAB PO SCH ×4 (08:21→21:19)
[2022-05-02] MEDS ORDERED: NON FORMULARY MED (Diltiazem Hcl 300 mg capsule,extended release 24hr) PO SCH (09:00)
[2022-05-03 07:24] LABS: Hematocrit 29 % (35-47); Hemoglobin 9.6 g/dL (12.0-16.0); Mean Corpuscular HGB Conc 33 g/dL (31-36); Mean Corpuscular Hemoglobin 26 pg (27-31); Mean Corpuscular Volume 80 fL (80-97); Mean Platelet Volume 7.7 fL (7.4-10.4); Platelet Count 478 10^3/uL (150-450); Red Blood Count 3.63 10^6 /uL (3.70-4.87); Red Cell Distribution Width 15 % (10-15); White Blood Count 12.7 10^3/uL (3.5-10.8)
[2022-05-03 07:50] LABS: ABS Basophils 0.1 10^3/ul (0-0.2); ABS Eosinophils 0.2 10^3/ul (0-0.6); ABS Lymphocytes 1.6 10^3/ul (1.0-4.8); ABS Monocytes 0.9 10^3/ul (0-0.8); ABS Neutrophils 9.9 10^3/ul (1.5-7.7); Eosinophil % 1.3 %; Lymphocyte % 12.7 %
[2022-05-03] MEDS: CMCS: FLUTICAS/UMECLI/VILANT 100-62.5-25 MDI (NF) INH SCH (08:16)
[2022-05-03] MEDS: dilTIAZem 30 MG TAB PO SCH ×4 (10:00→21:20)
[2022-05-04] MEDS: CMCS: FLUTICAS/UMECLI/VILANT 100-62.5-25 MDI (NF) INH SCH (07:08)
[2022-05-04] MEDS: dilTIAZem 30 MG TAB PO SCH ×4 (09:27→21:06)
[2022-05-05] MEDS: CMCS: FLUTICAS/UMECLI/VILANT 100-62.5-25 MDI (NF) INH SCH (07:41)
[2022-05-05] MEDS: dilTIAZem 30 MG TAB PO SCH ×4 (08:25→20:12)
[2022-05-06] MEDS: CMCS: FLUTICAS/UMECLI/VILANT 100-62.5-25 MDI (NF) INH SCH (07:35)
[2022-05-06] MEDS: dilTIAZem 30 MG TAB PO SCH ×4 (09:45→22:34)
[2022-05-07] MEDS: CMCS: FLUTICAS/UMECLI/VILANT 100-62.5-25 MDI (NF) INH SCH (07:21)
[2022-05-07] MEDS: dilTIAZem 30 MG TAB PO SCH ×4 (08:17→21:34)
[2022-05-08] MEDS: CMCS: FLUTICAS/UMECLI/VILANT 100-62.5-25 MDI (NF) INH SCH (07:02)
[2022-05-08] MEDS: dilTIAZem 30 MG TAB PO SCH ×4 (11:28→20:36)
[2022-05-08 12:03] LABS: Rapid COVID-19 Molecular Undetected (Undetected)
[2022-05-09] MEDS: CMCS: FLUTICAS/UMECLI/VILANT 100-62.5-25 MDI (NF) INH SCH (07:08)
[2022-05-09] MEDS: dilTIAZem 30 MG TAB PO SCH ×4 (09:55→21:10)
[2022-05-10] MEDS: CMCS: FLUTICAS/UMECLI/VILANT 100-62.5-25 MDI (NF) INH SCH (07:13)
[2022-05-10] MEDS: dilTIAZem 30 MG TAB PO SCH ×4 (07:59→22:40)
[2022-05-11] MEDS: CMCS: FLUTICAS/UMECLI/VILANT 100-62.5-25 MDI (NF) INH SCH (07:11)
[2022-05-11] MEDS: dilTIAZem 30 MG TAB PO SCH (07:58)
[2022-05-11 09:46] VITALS: BP 148/58
== END 2022-05-11 10:19 | DRG 98 ==
LOC: SUATTDRO 15:23 → MEDTELE 15:23
PROVIDERS: ADMIT Nurse Practitioner Family; ATTEND Hospitalist